=== PATIENT | male | born 1980 | race Caucasian/White ===

== ENCOUNTER 2016-07-12 22:54 | Emergency (ER) | payer SELFPAY ==
[2016-07-12] MEDS ORDERED: NS 0.9% 1000 ML* 1,000 ML IV ONE (23:10)
[2016-07-12 23:46] LABS: Hematocrit 48 % (42-52); Hemoglobin 16.4 g/dl (14.0-18.0); Mean Corpuscular HGB Conc 34 g/dl (31-36); Mean Corpuscular Hemoglobin 30 pg (27-31); Mean Corpuscular Volume 89 fL (80-94); Mean Platelet Volume 9 um3 (7.4-10.4); Red Blood Count 5.42 10^6/ul (4.0-5.4); Red Cell Distribution Width 13 % (10.5-15); White Blood Count 10.5 10^3/ul (3.5-10.8)
--- NOTE | 2016-07-12 23:49 | ED ---
Bharath Lugo Billy, scribed for Sergio Harris MD on 07/12/16 at 2330 . Abdominal Pain/Male - HPI Summary HPI Summary: Patient is a 35 year-old male coming to the ED with complaint of constant diffuse abdominal pain starting 1 week ago. Severity 5/10. He reports nausea and decreased appetite. Normal BM's. He has no other complaints at this time. - History of Current Complaint Chief Complaint: EDAbdPain Stated Complaint: ABD PAIN Time Seen by Provider: 07/12/16 23:06 Hx Obtained From: Patient Onset/Duration: Gradual Onset, Lasting Days, Still Present Timing: Constant Severity Initially: Moderate Severity Currently: Moderate Pain Intensity: 5 Pain Scale Used: 0-10 Numeric Location: Diffuse Radiates: No Aggravating Factor(s): Nothing Alleviating Factor(s): Nothing Associated Signs And Symptoms: Positive: Decreased Appetite, Nausea. Negative: Diarrhea - Allergies/Home Medications Allergies/Adverse Reactions: Allergies Allergy/AdvReac Type Severity Reaction Status Date / Time Amoxicillin Allergy Intermediate Unknown Verified 07/12/16 23:13 Reaction Details Penicillins Allergy Intermediate Rash Verified 07/12/16 23:13 Home Medications: Home Medications Cyclobenzaprine TAB* [Flexeril TAB*] 10 mg PO TID 07/12/16 [History Confirmed ] PMH/Surg Hx/FS Hx/Imm Hx Respiratory History: Reports: Hx Asthma - Surgical History Surgery Procedure, Year, and Place: knee Infectious Disease History: No Infectious Disease History: Denies: Hx Clostridium Difficile, Hx Hepatitis, Hx Human Immunodeficiency Virus (HIV), Hx of Known/Suspected MRSA, Hx Shingles, Hx Tuberculosis, Traveled Outside the [place] in Last 30 Days - Family History Known Family History: Negative: Cardiac Disease, Hypertension, Diabetes - Social History Alcohol Use: None Substance Use Type: Reports: None Hx Tobacco Use: Yes Smoking Status (MU): Heavy Every Day Tobacco Smoker Amount Used/How Often: 1/4 ppd Review of Systems Positive: Abdominal Pain, Nausea, Other - decreased appetite All Other Systems Reviewed And Are Negative: Yes Physical Exam Triage Information Reviewed: Yes Vital Signs On Initial Exam: Initial Vitals Temp Pulse Resp BP Pulse Ox 99.4 F 96 14 163/85 99 07/12/16 23:06 07/12/16 23:06 07/12/16 23:06 07/12/16 23:06 07/12/16 23:06 Vital Signs Reviewed: Yes Appearance: Positive: Well-Appearing, No Pain Distress Skin: Positive: Warm Head/Face: Positive: Normal Head/Face Inspection Eyes: Positive: TED ENT: Positive: Hearing grossly normal Neck: Positive: Supple Respiratory/Lung Sounds: Positive: Clear to Auscultation, Breath Sounds Present Cardiovascular: Positive: Normal Abdomen Description: Positive: Nontender, No Organomegaly, Soft. Negative: CVA Tenderness (R), CVA Tenderness (L) Bowel Sounds: Positive: Present Musculoskeletal: Positive: Strength/ROM Intact Neurological: Positive: Sensory/Motor Intact, Alert, Oriented to Person Place, Time Psychiatric: Positive: Affect/Mood Appropriate - [place] Coma Scale Coma Scale Total: 15 Diagnostics - Vital Signs Vital Signs Temp Pulse Resp BP Pulse Ox 07/12/16 23:16 99.4 F 92 14 163/85 98 07/12/16 23:06 99.4 F 96 14 163/85 99 - Laboratory Result Diagrams: 07/12/16 23:25 07/12/16 23:25 Lab Statement: Any lab studies that have been ordered have been reviewed, and results considered in the medical decision making process. Re-Evaluation - Re-Evaluation First Eval Change: Improved Abdominal Pain Fem Course/Dx - Diagnoses Provider Diagnoses: Abdominal pain Discharge - Discharge Plan Condition: Stable Disposition: HOME Patient Education Materials: Abdominal Pain (ED), Diet for Ulcers and Gastritis (ED) Referrals: [facility] [place] [facility] [Outside] Bradley Lou MD [Medical Doctor] - The documentation as recorded by the Bharath brownlee Billy accurately reflects the service I personally performed and the decisions made by pa, Sergio Harris MD.
[2016-07-12 23:58] LABS: Albumin 4.2 g/dL (3.2-5.2); BUN/Creatinine Ratio 7.1 (8-20); C Reactive Protein 1.21 mg/L (< 5.00); EGFR Non-African American 87.1 (>60); Globulin 3.4 g/dL (2-4); Magnesium 1.9 mg/dL (1.9-2.7); Potassium 3.7 mmol/L (3.5-5.0); Total Bilirubin 0.6 mg/dL (0.2-1.0); Total Protein 7.6 g/dL (6.4-8.9)
[2016-07-13 01:24] LABS: Urine Bilirubin Negative (Negative); Urine Glucose Negative (Negative); Urine Nitrite Negative (Negative)
[2016-07-13 01:45] VITALS: BP 139/84
== END 2016-07-13 01:44 | disposition home or self-care (01) ==
LOC: ED 22:54
DX: R10.9 Unspecified abdominal pain (principal); R11.0 Nausea; F17.200 Nicotine dependence, unspecified, uncomplicated
CPT/HCPCS: 36415; 80053; 81003; 83605; 83690; 83735; 85025; 86140; 96360; 99283

== ENCOUNTER 2016-09-15 14:18 | Emergency (ER) | payer SELFPAY ==
[2016-09-15] MEDS ORDERED: Ondansetron INJ* 2 MG/ML VIAL IV ONE (14:37)
[2016-09-15] MEDS ORDERED: HYDROmorphone INJ* 1 MG/ML CARPUJECT SYRINGE IV ONE (14:37)
[2016-09-15] MEDS ORDERED: NS 0.9% 1000 ML* 1,000 ML IV ONE (14:37)
[2016-09-15 15:27] LABS: Add Diff/Slide Review? Slide Review Added; Comments Flag Yes; Hematocrit 56 % (42-52); Hemoglobin 18.8 g/dl (14.0-18.0); Mean Corpuscular HGB Conc 33 g/dl (31-36); Mean Corpuscular Hemoglobin 30 pg (27-31); Mean Corpuscular Volume 90 fL (80-94); Mean Platelet Volume 10 um3 (7.4-10.4); Red Blood Count 6.29 10^6/ul (4.0-5.4); Red Cell Distribution Width 13 % (10.5-15); White Blood Count 19.9 10^3/ul (3.5-10.8)
[2016-09-15 15:46] LABS: Albumin 4.7 g/dL (3.2-5.2); BUN/Creatinine Ratio 8.9 (8-20); C Reactive Protein 4.48 mg/L (< 5.00); Calcium 9.6 mg/dL (8.6-10.3); EGFR African American 124.2 (>60); EGFR Non-African American 96.6 (>60); Globulin 3.7 g/dL (2-4); Potassium 4.1 mmol/L (3.5-5.0); Total Bilirubin 0.6 mg/dL (0.2-1.0); Total Protein 8.4 g/dL (6.4-8.9)
--- NOTE | 2016-09-15 15:57 | RAD ---
INDICATION: Right upper quadrant pain. COMPARISON: Comparison is made with a prior CT of the abdomen and pelvis from October 29, 2010. TECHNIQUE: Multiple real-time images of the right upper quadrant were obtained. FINDINGS: The gallbladder appear normal. No gallbladder wall thickening or pericholecystic fluid is present. No intra or extrahepatic ductal distention is present. The common bile duct measured 0.4 cm in diameter. The liver is normal in size without significant focal abnormality. The pancreas is partially obscured by overlying bowel gas. The right kidney is normal in size without evidence for hydronephrosis. IMPRESSION: NEGATIVE EXAM.
[2016-09-15] MEDS ORDERED: Pantoprazole IV* 40 MG IV ONE (16:04)
[2016-09-15] MEDS ORDERED: Sucralfate TAB* 1 GM PO ONE (16:04)
[2016-09-15] MEDS ORDERED: Iohexol 300* (CONTRAST) 10 ML SDV IV ONE (16:24)
[2016-09-15 17:00] VITALS: BP 153/79
--- NOTE | 2016-09-15 17:57 | RAD ---
INDICATION: Upper abdominal pain. COMPARISON: Comparison is made with a prior CT of the abdomen and pelvis from October 29, 2010. TECHNIQUE: A CT scan of the abdomen and pelvis was performed with intravenous and oral contrast following intravenous injection of 127 ml of Omnipaque 300 nonionic contrast. Contiguous axial sections were obtained from the lung bases through the symphysis pubis. Images were reconstructed in the coronal and sagittal planes. FINDINGS: There is mild dependent bilateral lower lobe subsegmental atelectasis. No pleural effusion is present. There is a coarse calcification in the posterior segment of the right hepatic lobe. The liver is decreased in attenuation consistent with fatty infiltration. No significant focal abnormality is seen. The spleen is normal in size without focal abnormality. No calcified gallstones are seen. The pancreas appears to be within normal limits. The kidneys and adrenal glands are normal in size. No hydronephrosis is seen. No significant focal renal abnormality is seen. The aorta is normal in caliber and demonstrates homogeneous contrast opacification. No significant enlarged retroperitoneal lymph nodes are seen. The stomach is moderately distended. There is [id number] distention of the small bowel with mild diffuse small bowel wall thickening. The distal small bowel is less distended than the proximal and mid small bowel suggesting the possibility of a partial obstruction alternatively the findings may be secondary to an enteritis. The colon is nondistended. There is fluid present within the colon. The appendix is within normal limits. There is mild descending and sigmoid diverticulosis without evidence for diverticulitis. There are small bilateral inguinal hernias containing fat. No free intraperitoneal air is seen. There is a small amount of free intraperitoneal fluid present within the abdomen and pelvis. No significant focal osseous abnormality is seen. IMPRESSION: 1. MILD TO MODERATE SMALL BOWEL DISTENTION AND SMALL BOWEL WALL THICKENING SUGGESTIVE OF A PARTIAL DISTAL SMALL BOWEL OBSTRUCTION OR AN ENTERITIS. 2. SMALL AMOUNT OF FREE INTRAPERITONEAL FLUID. 3. HEPATIC STEATOSIS.
[2016-09-15] MEDS ORDERED: metroNIDAZOLE TAB* 250 MG PO ONE (19:00)
[2016-09-15] MEDS ORDERED: HYDROcodone/ACETAMIN 5-325 MG* 1 TAB PO ONE (19:00)
[2016-09-15] MEDS ORDERED: Ciprofloxacin TAB* 500 MG PO ONE (19:00)
--- NOTE | 2016-09-15 20:15 | ED ---
Sridevi Lugo Anna, scribed for David Duval MD on 09/15/16 at 1436 . Abdominal Pain/Male - HPI Summary HPI Summary: Patient is a 36 y/o male coming to [facility] presenting with sudden onset of constant, diffuse abdominal pain that began at 0300 this morning. The pain has not changed since that time. It is described as a sharp pain. He took some baby gas drops, but this did not alleviate the symptoms. He felt nauseous when the nurse took his temperature, and he experienced one episode of emesis. He noticed loose stools at the end of his most recent BM today. He is currently experiencing diaphoresis. Denies changes in urination or abd surgery. He last ate yesterday, fast food at 1400 and Oreo cookies at 2200. The pain is not exacerbated by drinking water. - History of Current Complaint Chief Complaint: EDAbdPain Stated Complaint: ABD PAIN Time Seen by Provider: 09/15/16 14:25 Hx Obtained From: Patient Pain Intensity: 8 Pain Scale Used: 0-10 Numeric - Allergies/Home Medications Allergies/Adverse Reactions: Allergies Allergy/AdvReac Type Severity Reaction Status Date / Time Amoxicillin Allergy Intermediate Unknown Verified 07/12/16 23:13 Reaction Details Penicillins Allergy Intermediate Rash Verified 07/12/16 23:13 PMH/Surg Hx/FS Hx/Imm Hx Previously Healthy: Yes Cardiovascular History: Denies: Hx Myocardial Infarction Respiratory History: Reports: Hx Asthma - Surgical History Surgery Procedure, Year, and Place: knee Infectious Disease History: No Infectious Disease History: Denies: Hx Clostridium Difficile, Hx Hepatitis, Hx Human Immunodeficiency Virus (HIV), Hx of Known/Suspected MRSA, Hx Shingles, Hx Tuberculosis, Traveled Outside the in Last 30 Days - Family History Known Family History: Negative: Cardiac Disease, Hypertension, Diabetes - Social History Lives: With Family Alcohol Use: None Substance Use Type: Reports: None Hx Tobacco Use: Yes Smoking Status (MU): Heavy Every Day Tobacco Smoker Amount Used/How Often: 1/4 ppd Review of Systems Positive: Skin Diaphoresis Positive: Abdominal Pain, Vomiting, Diarrhea, Nausea Negative: dysuria, frequency, urgency All Other Systems Reviewed And Are Negative: Yes Physical Exam Triage Information Reviewed: Yes Vital Signs On Initial Exam: Initial Vitals Temp Pulse Resp BP Pulse Ox 97.4 F 103 18 137/85 98 09/15/16 14:22 09/15/16 14:22 09/15/16 14:22 09/15/16 14:22 09/15/16 14:22 Vital Signs Reviewed: Yes Appearance: Positive: Well-Appearing, No Pain Distress Skin: Positive: Warm, Pale. Negative: Dry - Skin is diaphoretic Head/Face: Positive: Normal Head/Face Inspection Eyes: Positive: Normal ENT: Positive: Normal ENT inspection Neck: Positive: Supple, Nontender Respiratory/Lung Sounds: Positive: Clear to Auscultation, Breath Sounds Present Cardiovascular: Positive: RRR Abdomen Description: Positive: Soft, Other: - Mild epigastric and RUQ tenderness Bowel Sounds: Positive: Hypoactive Musculoskeletal: Positive: Normal Neurological: Positive: Normal Psychiatric: Positive: Affect/Mood Appropriate Diagnostics - Vital Signs Vital Signs Temp Pulse Resp BP Pulse Ox 09/15/16 14:22 97.4 F 103 18 137/85 98 - Laboratory Lab Results: Lab Results 09/15/16 09/15/16 09/15/16 Range/Units 15:15 15:15 15:15 WBC 19.9 H (3.5-10.8) 10^3/ul RBC 6.29 H (4.0-5.4) 10^6/ul Hgb 18.8 H (14.0-18.0) g/dl Hct 56 H (42-52) % MCV 90 (80-94) fL MCH 30 (27-31) pg MCHC 33 (31-36) g/dl RDW 13 (10.5-15) % Plt Count 215 (150-450) 10^3/ul MPV 10 (7.4-10.4) um3 Neut % (Auto) 86.0 H (38-83) % Lymph % (Auto) 7.7 L (25-47) % [place] % (Auto) 5.3 (1-9) % Eos % (Auto) 0.3 (0-6) % Baso % (Auto) 0.7 (0-2) % Absolute Neuts (auto) 17.1 H (1.5-7.7) 10^3/ul Absolute Lymphs (auto) 1.5 (1.0-4.8) 10^3/ul Absolute Monos (auto) 1.1 H (0-0.8) 10^3/ul Absolute Eos (auto) 0.1 (0-0.6) 10^3/ul Absolute Basos (auto) 0.1 (0-0.2) 10^3/ul Absolute Nucleated RBC 0.04 10^3/ul Nucleated RBC % 0.2 Sodium 132 L (133-145) mmol/L Potassium 4.1 (3.5-5.0) mmol/L Chloride 103 (101-111) mmol/L Carbon Dioxide 20 L (22-32) mmol/L Anion Gap 9 (2-11) mmol/L BUN 8 (6-24) mg/dL Creatinine 0.90 (0.67-1.17) mg/dL Est GFR ( Amer) 124.2 (>60) Est GFR (Non-Af Amer) 96.6 (>60) BUN/Creatinine Ratio 8.9 (8-20) Glucose 145 H (70-100) mg/dL Lactic Acid 1.4 (0.5-2.0) mmol/L Calcium 9.6 (8.6-10.3) mg/dL Total Bilirubin 0.60 (0.2-1.0) mg/dL AST 25 (13-39) U/L ALT 51 (7-52) U/L Alkaline Phosphatase 76 (34-104) U/L Troponin I 0.00 (<0.04) ng/mL C-Reactive Protein 4.48 (< 5.00) mg/L Total Protein 8.4 (6.4-8.9) g/dL Albumin 4.7 (3.2-5.2) g/dL Globulin 3.7 (2-4) g/dL Albumin/Globulin Ratio 1.3 (1-3) Lipase 17 (11.0-82.0) U/L Result Diagrams: 09/15/16 15:15 09/15/16 15:15 Lab Statement: Any lab studies that have been ordered have been reviewed, and results considered in the medical decision making process. - CT CT abd/pel CT Interpretation: Positive (See Comments) CT Interpretation Completed By: Radiologist - IMPRESSION: 1. MILD TO MODERATE SMALL BOWEL DISTENTION AND SMALL BOWEL WALL THICKENING SUGGESTIVE OF A PARTIAL DISTAL SMALL BOWEL OBSTRUCTION OR AN ENTERITIS. 2. SMALL AMOUNT OF FREE INTRAPERITONEAL FLUID. 3. HEPATIC STEATOSIS. - Ultrasound No standard instances Ultrasound Interpretation: No Acute Changes Ultrasound Interpretation Completed By: Radiologist - IMPRESSION: NEGATIVE EXAM. Re-Evaluation - Re-Evaluation First Eval Re-Evaluation Time: 16:02 Change: Improved Comment: Discussed results of US and plan of care with patient and family. Patient and family agree with plan. Second Eval Re-Evaluation Time: 18:06 Change: Improved Comment: The patient reports that he feels a little better. Discussed results of CT and plan of care. Patient is agreeable with plan. Abdominal Pain Fem Course/Dx - Course Course Of Treatment: Mr. Le presented with severe epigastric/diffuse upper abdominal pain that started during the night. He had a little N/V/D but those symptoms weren't prominent. His WBC's were quite high, a CT showed enteritis and he got a lot of relief with pain medicine. I am going to cover him with antibiotis although this may be all viral. - Diagnoses Provider Diagnoses: Enteritis - Provider Notifications Discussed Care Of Patient With: Dr. Harrell (surgeon) at 1803. The patient is not surgical at this time. Discharge - Discharge Plan Condition: Stable Disposition: HOME Prescriptions: Ciprofloxacin TAB* [Cipro Tab*] 500 mg PO BID #20 tab HYDROcodone/ACETAMIN 5-325 MG* [[place] 5-325 TAB*] 1 tab PO Q6H PRN #20 tab MDD 4 PRN Reason: Pain Metronidazole [Flagyl 500 MG TAB] 500 mg PO TID #30 tab Patient Education Materials: Ciprofloxacin (By mouth), Hydrocodone/ Acetaminophen (By mouth), Metronidazole (By mouth), Enteritis (ED) Referrals: [facility] [place] [facility] [Outside] Additional Instructions: Follow up with primary care physician within 48 hours. Return to the emergency department for changing or worsening symptoms. The documentation as recorded by the Sridevi brownlee Anna accurately reflects the service I personally performed and the decisions made by me, David Duval MD.
== END 2016-09-15 18:56 | disposition home or self-care (01) ==
LOC: ED 14:18
DX: K52.9 Noninfective gastroenteritis and colitis, unspecified (principal); R10.9 Unspecified abdominal pain; R11.2 Nausea with vomiting, unspecified; R19.7 Diarrhea, unspecified; F17.210 Nicotine dependence, cigarettes, uncomplicated
CPT/HCPCS: 36415; 74177; 76705; 80053; 83605; 83690; 84484; 85025; 86140; 96374; 96375; 99283; A9270-GY; J1170; J2405; Q9967

== ENCOUNTER 2017-02-21 15:03 | Emergency (ER) | payer OTHER ==
[2017-02-21] MEDS ORDERED: Sucralfate TAB* 1 GM PO ONE (16:49)
[2017-02-21] MEDS ORDERED: Pantoprazole IV* 40 MG IV ONE (16:49)
[2017-02-21] MEDS ORDERED: NS 0.9% 1000 ML* 1,000 ML IV ONE (16:49)
[2017-02-21 17:16] LABS: Hematocrit 58 % (42-52); Hemoglobin 19.5 g/dl (14.0-18.0); Mean Corpuscular HGB Conc 34 g/dl (31-36); Mean Corpuscular Hemoglobin 31 pg (27-31); Mean Corpuscular Volume 90 fL (80-94); Mean Platelet Volume 9 um3 (7.4-10.4); Red Blood Count 6.39 10^6/ul (4.0-5.4); Red Cell Distribution Width 13 % (10.5-15); White Blood Count 17.9 10^3/ul (3.5-10.8)
[2017-02-21 17:17] LABS: Add Diff/Slide Review? Slide Review Added; Comments Flag Yes
[2017-02-21 17:32] LABS: ALT 44 U/L (7-52); AST 21 U/L (13-39); Albumin 4.6 g/dL (3.2-5.2); Alkaline Phosphatase 63 U/L (34-104); Anion Gap 7 mmol/L (2-11); BUN/Creatinine Ratio 12.2 (8-20); Blood Urea Nitrogen 10 mg/dL (6-24); C Reactive Protein < 1.00 mg/L (< 5.00); CO2 Carbon Dioxide 21 mmol/L (22-32); Calcium 9.5 mg/dL (8.6-10.3); Chloride 106 mmol/L (101-111); EGFR African American 138.3 (>60); EGFR Non-African American 107.6 (>60); Globulin 3.7 g/dL (2-4); Glucose 110 mg/dL (70-100); Lipase 17 U/L (11.0-82.0); Potassium 4.1 mmol/L (3.5-5.0); Sodium 134 mmol/L (133-145); Total Protein 8.3 g/dL (6.4-8.9)
[2017-02-21 17:38] LABS: Spherocytes 2+
[2017-02-21] MEDS ORDERED: HYDROmorphone* 1 MG/ML 1 ML SYR IV ONE (18:40)
[2017-02-21] MEDS: Ondansetron INJ* 2 MG/ML VIAL IV ONE ×2 (18:54→19:21)
[2017-02-21] MEDS ORDERED: Ketorolac INJ* 30 MG/ML 1 ML VIAL IV ONE (19:10)
[2017-02-21 19:54] LABS: Urine Bacteria Absent (Absent); Urine Bilirubin Negative (Negative); Urine Glucose Negative (Negative); Urine Nitrite Negative (Negative)
[2017-02-21 20:27] VITALS: BP 136/78
--- NOTE | 2017-02-21 21:36 | ED ---
Cary Lugo Alfonso, scribed for David Duval MD on 02/21/17 at 1649 . Abdominal Pain/Male - HPI Summary HPI Summary: This patient is a 36 year old M presenting to [facility] accompanied by female with a chief complaint of abdominal pain since 0700 this morning. He has had this pain once before. The CC is described as stabbing pain. The patient rates the pain 7/10 in severity. Symptoms aggravated and alleviated by nothing. Patient reports diarrhea, and nausea. Patient denies change in diet, and recent ETOH use. - History of Current Complaint Chief Complaint: EDAbdPain Stated Complaint: ABD PAIN Time Seen by Provider: 02/21/17 16:27 Hx Obtained From: Patient Onset/Duration: Sudden Onset, Lasting Hours - 0700 this morning, Still Present Timing: Constant Severity Initially: Moderate Severity Currently: Moderate Pain Intensity: 7 Pain Scale Used: 0-10 Numeric Character: Sharp Aggravating Factor(s): Nothing Alleviating Factor(s): Nothing Associated Signs And Symptoms: Positive: Other - Patient reports diarrhea, and nausea. Patient denies change in diet, and recent ETOH use. - Allergies/Home Medications Allergies/Adverse Reactions: Allergies Allergy/AdvReac Type Severity Reaction Status Date / Time Amoxicillin Allergy Intermediate Nausea And Verified 02/21/17 16:50 Vomiting Penicillins Allergy Intermediate Rash Verified 07/12/16 23:13 PMH/Surg Hx/FS Hx/Imm Hx Endocrine/Hematology History: Denies: Hx Diabetes Cardiovascular History: Denies: Hx Hypertension, Hx Myocardial Infarction Respiratory History: Reports: Hx Asthma History: Denies: Hx Renal Disease - Surgical History Surgery Procedure, Year, and Place: knee Infectious Disease History: No Infectious Disease History: Denies: Hx Clostridium Difficile, Hx Hepatitis, Hx Human Immunodeficiency Virus (HIV), Hx of Known/Suspected MRSA, Hx Shingles, Hx Tuberculosis, Traveled Outside the [place] in Last 30 Days - Family History Known Family History: Negative: Cardiac Disease, Hypertension, Diabetes - Social History Alcohol Use: None Substance Use Type: Reports: None Hx Tobacco Use: Yes Smoking Status (MU): Heavy Every Day Tobacco Smoker Amount Used/How Often: 1/4 ppd Review of Systems Negative: Fever Positive: Abdominal Pain, Diarrhea, Other - Negative change in diet.. Negative : Nausea Neurological: Other - Negative recent ETOH use All Other Systems Reviewed And Are Negative: Yes Physical Exam Triage Information Reviewed: Yes Vital Signs On Initial Exam: Initial Vitals Temp Pulse Resp BP Pulse Ox 99 F 96 20 160/87 98 02/21/17 15:05 02/21/17 15:05 02/21/17 15:05 02/21/17 15:05 02/21/17 15:05 Vital Signs Reviewed: Yes Appearance: Positive: Well-Appearing, No Pain Distress Skin: Positive: Warm, Skin Color Reflects Adequate Perfusion, Dry Head/Face: Positive: Normal Head/Face Inspection Eyes: Positive: Normal ENT: Positive: Normal ENT inspection Neck: Positive: Supple, Nontender Respiratory/Lung Sounds: Positive: Clear to Auscultation, Breath Sounds Present Cardiovascular: Positive: RRR Abdomen Description: Positive: Soft, Other: - Epigastric tenderness. Bowel Sounds: Positive: Present Musculoskeletal: Positive: Normal Neurological: Positive: Normal, Sensory/Motor Intact, Alert, Oriented to Person Place, Time, CN Intact II-III Psychiatric: Positive: Affect/Mood Appropriate Diagnostics - Vital Signs Vital Signs Temp Pulse Resp BP Pulse Ox 02/21/17 16:46 99.0 F 86 16 143/94 97 02/21/17 16:32 95 97 02/21/17 16:30 143/94 02/21/17 15:05 99 F 96 20 160/87 98 - Laboratory Lab Results: Lab Results 02/21/17 02/21/17 02/21/17 Range/Units 17:08 17:08 17:08 WBC 17.9 H (3.5-10.8) 10^3/ul RBC 6.39 H (4.0-5.4) 10^6/ul Hgb 19.5 H (14.0-18.0) g/dl Hct 58 H (42-52) % MCV 90 (80-94) fL MCH 31 (27-31) pg MCHC 34 (31-36) g/dl RDW 13 (10.5-15) % Plt Count 220 (150-450) 10^3/ul MPV 9 (7.4-10.4) um3 Neut % (Auto) 82.3 (38-83) % Lymph % (Auto) 10.6 L (25-47) % [place] % (Auto) 5.9 (1-9) % Eos % (Auto) 0.6 (0-6) % Baso % (Auto) 0.6 (0-2) % Absolute Neuts (auto) 14.7 H (1.5-7.7) 10^3/ul Absolute Lymphs (auto) 1.9 (1.0-4.8) 10^3/ul Absolute Monos (auto) 1.0 H (0-0.8) 10^3/ul Absolute Eos (auto) 0.1 (0-0.6) 10^3/ul Absolute Basos (auto) 0.1 (0-0.2) 10^3/ul Absolute Nucleated RBC 0 10^3/ul Nucleated RBC % 0 Normal RBC Morphology Not Reportable Spherocytes 2+ Sodium 134 (133-145) mmol/L Potassium 4.1 (3.5-5.0) mmol/L Chloride 106 (101-111) mmol/L Carbon Dioxide 21 L (22-32) mmol/L Anion Gap 7 (2-11) mmol/L BUN 10 (6-24) mg/dL Creatinine 0.82 (0.67-1.17) mg/dL Est GFR ( Amer) 138.3 (>60) Est GFR (Non-Af Amer) 107.6 (>60) BUN/Creatinine Ratio 12.2 (8-20) Glucose 110 H (70-100) mg/dL Lactic Acid 0.9 (0.5-2.0) mmol/L Calcium 9.5 (8.6-10.3) mg/dL Total Bilirubin 0.50 (0.2-1.0) mg/dL AST 21 (13-39) U/L ALT 44 (7-52) U/L Alkaline Phosphatase 63 (34-104) U/L C-Reactive Protein < 1.00 (< 5.00) mg/L Total Protein 8.3 (6.4-8.9) g/dL Albumin 4.6 (3.2-5.2) g/dL Globulin 3.7 (2-4) g/dL Albumin/Globulin Ratio 1.2 (1-3) Lipase 17 (11.0-82.0) U/L Urine Color Urine Appearance Urine pH (5-9) Ur Specific [place] (1.010-1.030) Urine Protein (Negative) Urine Ketones (Negative) Urine Blood (Negative) Urine Nitrate (Negative) Urine Bilirubin (Negative) Urine Urobilinogen (Negative) Ur Leukocyte Esterase (Negative) Urine WBC (Auto) (Absent) Urine RBC (Auto) (Absent) Ur Squamous Epith Cells (Absent) Urine Bacteria (Absent) Urine Glucose (Negative) 02/21/17 Range/Units 19:27 WBC (3.5-10.8) 10^3/ul RBC (4.0-5.4) 10^6/ul Hgb (14.0-18.0) g/dl Hct (42-52) % MCV (80-94) fL MCH (27-31) pg MCHC (31-36) g/dl RDW (10.5-15) % Plt Count (150-450) 10^3/ul MPV (7.4-10.4) um3 Neut % (Auto) (38-83) % Lymph % (Auto) (25-47) % [place] % (Auto) (1-9) % Eos % (Auto) (0-6) % Baso % (Auto) (0-2) % Absolute Neuts (auto) (1.5-7.7) 10^3/ul Absolute Lymphs (auto) (1.0-4.8) 10^3/ul Absolute Monos (auto) (0-0.8) 10^3/ul Absolute Eos (auto) (0-0.6) 10^3/ul Absolute Basos (auto) (0-0.2) 10^3/ul Absolute Nucleated RBC 10^3/ul Nucleated RBC % Normal RBC Morphology Spherocytes Sodium (133-145) mmol/L Potassium (3.5-5.0) mmol/L Chloride (101-111) mmol/L Carbon Dioxide (22-32) mmol/L Anion Gap (2-11) mmol/L BUN (6-24) mg/dL Creatinine (0.67-1.17) mg/dL Est GFR ( Amer) (>60) Est GFR (Non-Af Amer) (>60) BUN/Creatinine Ratio (8-20) Glucose (70-100) mg/dL Lactic Acid (0.5-2.0) mmol/L Calcium (8.6-10.3) mg/dL Total Bilirubin (0.2-1.0) mg/dL AST (13-39) U/L ALT (7-52) U/L Alkaline Phosphatase (34-104) U/L C-Reactive Protein (< 5.00) mg/L Total Protein (6.4-8.9) g/dL Albumin (3.2-5.2) g/dL Globulin (2-4) g/dL Albumin/Globulin Ratio (1-3) Lipase (11.0-82.0) U/L Urine Color Yellow Urine Appearance Clear Urine pH 5.0 (5-9) Ur Specific [place] 1.021 (1.010-1.030) Urine Protein 1+(30 mg/dl) H (Negative) Urine Ketones 1+ H (Negative) Urine Blood Negative (Negative) Urine Nitrate Negative (Negative) Urine Bilirubin Negative (Negative) Urine Urobilinogen Negative (Negative) Ur Leukocyte Esterase Negative (Negative) Urine WBC (Auto) Absent (Absent) Urine RBC (Auto) Trace(0-2/hpf) (Absent) Ur Squamous Epith Cells Present H (Absent) Urine Bacteria Absent (Absent) Urine Glucose Negative (Negative) Result Diagrams: 02/21/17 17:08 02/21/17 17:08 Lab Statement: Any lab studies that have been ordered have been reviewed, and results considered in the medical decision making process. Abdominal Pain Fem Course/Dx - Course Course Of Treatment: Mr. Le presented with acute epigastric pain which improved slowly and incompletely with protonix, sucralfate and ketorolac. His W/ U revealed a leukocytosis if 17. He had this happen before and had a CT which was negative and I am hesitant to repeat it. He is largely improved and I will give him some sucralfate to use for a few days and F/U. - Diagnoses Provider Diagnoses: Epigastric abdominal pain Discharge - Discharge Plan Condition: Stable Disposition: HOME Prescriptions: Sucralfate TAB* [Carafate*] 1 gm PO QID #40 tab Patient Education Materials: Epigastric Pain (ED) Forms: *Work Release Referrals: [facility] [place] [facility] [Outside] - 3 Days The documentation as recorded by the Cary brownlee Alfonso accurately reflects the service I personally performed and the decisions made by me, David Duval MD.
== END 2017-02-21 20:35 | disposition home or self-care (01) ==
LOC: ED 15:03
DX: R10.13 Epigastric pain (principal); R11.0 Nausea; R19.7 Diarrhea, unspecified; J45.909 Unspecified asthma, uncomplicated; Z88.0 Allergy status to penicillin; F17.210 Nicotine dependence, cigarettes, uncomplicated
CPT/HCPCS: 36415; 80053; 81003; 81015; 83605; 83690; 85025; 86140; 96361; 96374; 96375; 99283; A9270-GY; J1885; J2405

== ENCOUNTER 2018-01-31 13:38 | Emergency (ER) | payer MEDICAID, OTHER ==
[2018-01-31 13:52] VITALS: BP 147/97
--- NOTE | 2018-01-31 14:04 | UC ---
Knee Pain HPI - HPI Summary HPI Summary: right knee (anterior distal---over past surgical scar) hit by a stone while weed whacking last week end. - History of Current Complaint Chief Complaint: UCLowerExtremity Stated Complaint: WOUND ON KNEE Time Seen by Provider: 01/31/18 13:50 Hx Obtained From: Patient Onset/Duration: Sudden Onset Location Of Injury: right knee Pain Intensity: 5 Pain Scale Used: 0-10 Numeric Character: Aching Aggravating Factor(s): Nothing Alleviating Factor(s): Other - "black drawing tato" Associated Signs And Symptoms: Positive: Redness Able to Bear Weight: Yes - Allergies/Home Medications Allergies/Adverse Reactions: Allergies Allergy/AdvReac Type Severity Reaction Status Date / Time Penicillins Allergy Rash Verified 01/31/18 13:53 PMH/Surg Hx/FS Hx/Imm Hx Previously Healthy: No - Surgical History Surgical History: Yes Surgery Procedure, Year, and Place: Right knee acl repair - Family History Known Family History: Positive: Unknown Negative: Cardiac Disease, Hypertension, Diabetes - Social History Occupation: Employed Full-time Lives: With Family Alcohol Use: None Substance Use Type: None Smoking Status (MU): Heavy Every Day Tobacco Smoker Amount Used/How Often: 1/ ppd Review of Systems Constitutional: Negative Skin: Other - pw right knee with scabbing and 3 cm diamerter erythema Eyes: Negative ENT: Negative Respiratory: Negative Cardiovascular: Negative Gastrointestinal: Negative Genitourinary: Negative Motor: Negative Neurovascular: Negative Musculoskeletal: Negative Neurological: Negative Psychological: Negative Is Patient Immunocompromised?: No All Other Systems Reviewed And Are Negative: Yes Physical Exam Triage Information Reviewed: Yes Appearance: Well-Appearing, No Pain Distress, Well-Nourished Vital Signs: Initial Vital Signs Temp 99.3 F 01/31/18 13:48 Pulse 92 01/31/18 13:48 Resp 16 01/31/18 13:48 BP 147/97 01/31/18 13:48 Pulse Ox 100 01/31/18 13:48 Vital Signs Reviewed: Yes Eye Exam: Normal Eyes: Positive: Conjunctiva Clear ENT Exam: Normal ENT: Positive: Normal ENT inspection, Hearing grossly normal. Negative: Trismus , Muffled voice, Hoarse voice Dental Exam: Normal Neck exam: Normal Neck: Positive: Supple, Nontender Respiratory Exam: Normal Respiratory: Positive: Chest non-tender, No respiratory distress, No accessory muscle use Cardiovascular Exam: Normal Cardiovascular: Positive: RRR, Pulses Normal, Brisk Capillary Refill Musculoskeletal Exam: Normal Musculoskeletal: Positive: Strength Intact, ROM Intact, No Edema Neurological Exam: Normal Neurological: Positive: Alert, Muscle Tone Normal Psychological Exam: Normal Skin Exam: Other Skin: Positive: Other - scab right distal anterior medial aspect of knee with 3cm of erythema--patient reported drained but no purulence collection of drainage noted on exam Diagnostics - Radiology No standard instances Xray Interpretation: No Acute Changes Radiology Interpretation Completed By: ED Physician, Radiologist - Patient Name : MYRON MOELLER Medical Record#: [id number] Ordering Physician: Emeli Saha NP Acct.#: [id number] : 1980 Age: 37 Sex: M Location: [facility] Exam Date: 01/31/18 1349 ADM Status: REG ER Order Information: KNEE RIGHT 4+ VWS Accession Number: [id number] CPT: 77663 HISTORY: infection,swelling COMPARISONS: December 01, 2004 VIEWS: 5, Frontal, lateral, axial, and oblique views of the right knee FINDINGS: BONE DENSITY: Normal. BONES: There is postsurgical change to the distal femur and proximal tibia. JOINTS: There is mild to moderate tricompartmental osteoarthritis. There is no suprapatellar joint effusion or lipohemarthrosis. ALIGNMENT: There is no dislocation. SOFT TISSUES: Unremarkable. OTHER FINDINGS: None. IMPRESSION: OSTEOARTHRITIS. NO ACUTE OSSEOUS INJURY. IF SYMPTOMS PERSIST, RECOMMEND REPEAT IMAGING. <Electronically signed by Glenn Torres MD in OV> 01/31/181422 Dictated By: Glenn Torres MD Dictated Date/Time: 01/31/181422 Transcribed Date/Time: 01/31/18 142 Copy to: CC:Emeli Saha NP; Susan Moeller MD; No Primary Care Phys,NOPCP Imaging - [facility] Imaging - [facility] [address] [address] ph [phone]) ph [phone] ph ) This report is only to be considered final once signed by the Provider(s) as displayed in the "<Electronically Signed by >" field (s). Absence of a signature indicates the report is in a draft status and still needs to be finalized. In the event this document was created by someone other than the signing Provider, the individual initiating the document will be listed in the "Entered by:" or "Dictated by:" wills. 1 of 1 Knee Pain Course/Dx - Course Course Of Treatment: warm compresses, bactrim, soap and water wash bid, follow wound and BP with PCP or [facility] - Differential Dx/Diagnosis Provider Diagnoses: elevated blood pressure without hx of hypertension, wound infection right knee Discharge - Sign-Out/Discharge Documenting (check all that apply): Patient Departure - Discharge Plan Condition: Stable Disposition: HOME Prescriptions: Sulfamethox/Trimethoprim DS* [Bactrim DS 800/160 TAB*] 1 tab PO BID #20 tab Patient Education Materials: Acute Wound Care (ED), Hypertension (ED), Warm Compress or Soak (ED) Referrals: [facility] [Outside] - 1 Week (wound and bp recheck) Flash Hoff MD [Medical Doctor] - 2 Weeks - Billing Disposition and Condition Condition: STABLE Disposition: Home Attestation Statement User Type: Provider - I was available for consult. This patient was seen by the SHADE. The patient was not presented to, seen by, or examined by me. -Anayeli
--- NOTE | 2018-01-31 14:26 | RAD ---
HISTORY: infection,swelling COMPARISONS: December 01, 2004 VIEWS: 5, Frontal, lateral, axial, and oblique views of the right knee FINDINGS: BONE DENSITY: Normal. BONES: There is postsurgical change to the distal femur and proximal tibia. JOINTS: There is mild to moderate tricompartmental osteoarthritis. There is no suprapatellar joint effusion or lipohemarthrosis. ALIGNMENT: There is no dislocation. SOFT TISSUES: Unremarkable. OTHER FINDINGS: None. IMPRESSION: OSTEOARTHRITIS. NO ACUTE OSSEOUS INJURY. IF SYMPTOMS PERSIST, RECOMMEND REPEAT IMAGING.
== END 2018-01-31 14:38 | disposition home or self-care (01) ==
LOC: UCEAST 13:38
DX: S80.911A Unspecified superficial injury of right knee, initial encounter (principal); L08.9 Local infection of the skin and subcutaneous tissue, unspecified; R03.0 Elevated blood-pressure reading, without diagnosis of hypertension; F17.210 Nicotine dependence, cigarettes, uncomplicated; W22.8XXA Striking against or struck by other objects, initial encounter; Z88.0 Allergy status to penicillin; Y93.89 Activity, other specified; Y92.9 Unspecified place or not applicable
CPT/HCPCS: 99212; G0463

== ENCOUNTER 2018-08-03 18:45 | Emergency (ER) | payer MEDICAID ==
[2018-08-03] MEDS ORDERED: Ibuprofen TAB* 600 MG PO ONE (19:16)
--- NOTE | 2018-08-03 19:24 | UC ---
Dental HPI - HPI Summary HPI Summary: 37-year-old male presents with onset of right lower dental pain this morning. States pain was initially mild but tonight while eating some hot soup had sudden severe sharp pain and has noticed some mild right facial swelling since. He has history of abscess of the same tooth in the past. No dental appointment as currently scheduled. Denies fever, chills, trismus, dysphagia, or difficulty breathing. - History of Current Complaint Chief Complaint: UCDentalProblem Stated Complaint: TOOTH ACHE Time Seen by Provider: 08/03/18 19:09 Hx Obtained From: Patient Pain Intensity: 8 - Allergies/Home Medications Allergies/Adverse Reactions: Allergies Allergy/AdvReac Type Severity Reaction Status Date / Time carisoprodol [From [employer]] Allergy Severe Headache Verified 08/03/18 18:56 Penicillins Allergy Rash Verified 01/31/18 13:53 PMH/Surg Hx/FS Hx/Imm Hx Previously Healthy: Yes - Denies significant PMH - Surgical History Surgical History: Yes Surgery Procedure, Year, and Place: Right knee acl repair - Family History Known Family History: Negative: Cardiac Disease, Hypertension, Diabetes - Social History Occupation: Employed Full-time Lives: With Family Alcohol Use: None Substance Use Type: None Smoking Status (MU): Heavy Every Day Tobacco Smoker Amount Used/How Often: 1/4 ppd Review of Systems All Other Systems Reviewed And Are Negative: Yes Constitutional: Negative: Fever, Chills Eyes: Negative: Drainage, Eye Redness ENT: Positive: Dental Pain. Negative: Sore Throat, Ear Ache, Nasal Discharge, Sinus Congestion, Sinus Pain/Tenderness Respiratory: Negative: Shortness Of Breath, Cough Cardiovascular: Negative: Palpitations, Chest Pain Gastrointestinal: Negative: Abdominal Pain, Vomiting, Diarrhea, Nausea Genitourinary: Positive: Negative Musculoskeletal: Positive: Negative Neurological: Positive: Negative Is Patient Immunocompromised?: No Physical Exam - Summary Physical Exam Summary: GENERAL APPEARANCE: Well developed, well nourished, alert and cooperative, and appears to be in no acute distress. HEAD: Mild facial swelling over right maxilla. EYES: Conjunctiva clear. No drainage. Vision is grossly intact. EARS: External auditory canals and tympanic membranes clear, hearing grossly intact. NOSE: No nasal discharge. THROAT: Pharynx normal. No tonsilar inflammation, swelling, exudate, or lesions. Uvula midline. Multiple dental caries noted throughout with significant dental decay of right 2nd molar (#31) with gingival erythema. No induration, fluctuance, or drainage noted. Right 1st molar (#30) absent. NECK: Neck supple, non-tender without lymphadenopathy. CARDIAC: Normal S1 and S2. No S3, S4 or murmurs. Rhythm is regular. There is no peripheral edema, cyanosis or pallor. Extremities are warm and well perfused. Capillary refill is less than 2 seconds. LUNGS: Clear to auscultation without rales, rhonchi, wheezing or diminished breath sounds. ABDOMEN: Positive bowel sounds. Soft, nondistended, nontender. No guarding or rebound. No masses or hepatosplenomegally. MUSKULOSKELETAL: ROM intact to all extremities. No joint erythema or tenderness. Normal muscular development. Normal gait. SKIN: Skin normal color, texture and turgor with no lesions or eruptions. Triage Information Reviewed: Yes Vital Signs: Initial Vital Signs Temp 99 F 08/03/18 18:50 Pulse 77 08/03/18 18:50 Resp 17 08/03/18 18:50 BP 196/106 08/03/18 18:50 Pulse Ox 98 08/03/18 18:50 Vital Signs Reviewed: Yes Dental Complaint Course/Dx - Course Course Of Treatment: 37-year-old male presents with onset of right lower dental pain this morning. States pain was initially mild but tonight while eating some hot soup had sudden severe sharp pain and has noticed some mild right facial swelling since. He has history of abscess of the same tooth in the past. No dental appointment as currently scheduled. Denies fever, chills, trismus, dysphagia, or difficulty breathing. Afebrile. He was noted to be hypertensive otherwise vital signs were within normal parameters. Exam revealed an adult male who appears uncomfortable holding his right lower jaw. There is some mild facial swelling along the right maxilla. He has diffuse dental caries with severe dental decay of the second right lower molar with some gingival erythema. No induration, fluctuance, or drainage noted. Patient was offered an inferior alveolar nerve block for pain management but declined. He was given a dose of ibuprofen 600 mg. I'm going to treat for possible dental infection with clindamycin 300 mg 3 times a day 10 days and recommend continued use of ibuprofen 6 that her milligrams every 8 hours as needed for pain. He is to schedule an appointment with his dentist at next available. It is been recommended that she follow up with his primary care provider within 4 weeks for recheck blood pressure. Anticipatory guidance and warning symptoms were reviewed with the patient. Verbalizes understanding and agrees with plan of care. - Differential Dx/Diagnosis Differential Diagnosis/Dx: Dental Abscess, Dental Caries, Fractured Tooth, Odontogenic Pain, Peridontic Disease Provider Diagnosis: Pain, dental Discharge - Sign-Out/Discharge Documenting (check all that apply): Patient Departure All imaging exams completed and their final reports reviewed: No Studies - Discharge Plan Condition: Stable Disposition: HOME Prescriptions: Clindamycin HCl 300 mg PO Q8HR #30 capsule Ibuprofen 600 mg PO Q8HR PRN #30 tablet PRN Reason: Pain Patient Education Materials: Toothache (ED) Forms: *Work Release Referrals: No Primary Care Phys,NOPCP [Primary Care Provider] - Additional Instructions: Start clindamycin 300 mg every 8 hours for a possible dental infection. Take ibuprofen 600 mg every 8 hours as needed for pain. Rinse your mouth with a salt water solution after eating and at bedtime to remove debris. Apply ice to your face for 15-20 minutes 4 times a day to help with pain and swelling. Call and schedule an appointment with your dentist at next available appointment. Your blood pressure was elevated in the office today. It is recommended that you follow up with your primary care provider within 4 weeks to have this rechecked. Seek immediate medical attention if you develop fever greater than 100.5 F, are unable to open your mouth, have difficulty swallowing, difficulty breathing or any worsening of symptoms. - Billing Disposition and Condition Condition: STABLE Disposition: Home
[2018-08-03 19:26] VITALS: BP 150/94
== END 2018-08-03 19:38 | disposition home or self-care (01) ==
LOC: UCEAST 18:45
DX: K08.89 Other specified disorders of teeth and supporting structures (principal); K02.9 Dental caries, unspecified; Z88.0 Allergy status to penicillin; Z88.8 Allergy status to other drugs, medicaments and biological substances; F17.200 Nicotine dependence, unspecified, uncomplicated
CPT/HCPCS: 99212; A9270-GY; G0463

== ENCOUNTER 2018-09-03 15:52 | Inpatient (IN) | payer OTHER ==
--- OUTSIDE RECORDS SUMMARY | 2018-09-03 16:17 | XMS REPORT | Continuity of Care Document ---
:1980 External Reference #:[id number] Author Name Josselin Castaneda Care Team Providers Name Role Phone Eleno Quinteros M.D.,[facility] Care Team Information Hat Body Sorter Unavailable Payers Date Identification Numbers Payment Provider Subscriber Policy Number: [id number] Marcial/[employer] Ryan Le PayID: [id number] [address] [address] [place] [address] Policy Number: [id number] Medicaid Ryan Le Group Name: 1 1 [address] PayID: [id number] [place] [address] Advance Directives Description No Information Available Problems Date Description Provider Status Onset: 09/01/2018 Periapical abscess without sinus tract Marcos Ramos MD Active Family History Description No Information Available Social History Type Date Description Comments Sex Unknown Tobacco Use Start: Unknown Patient is a current trying to quit, using smoker, smokes every day patches and smoking only occasionally throughout the day. Smoking Status Reviewed: 09/01/18 Patient is a current trying to quit, using smoker, smokes every day patches and smoking only occasionally throughout the day. Allergies, Adverse Reactions, Alerts Date Description Reaction Status Severity Comments 09/01/2018 Amoxicillin Active 09/01/2018 Penicillin Active 09/25/2009 NKDA Inactive Medications Medication Date Status Form Strength Qnty SIG Indications Ordering Provider Gino Active Tablets 500mg 21tabs completed K04.7 Rupesh Quintero ---take MD every 8 hours for 7 days Ibuprofen 0 Active Tablets 800mg po bid Unknown 000 Clindamycin Active Capsules 300mg 1 by Unknown HCL 000 mouth three times a day Tramadol HCL 0 Active Tablets 50mg 1 tablet Unknown 000 by mouth every 8 hours as needed pain Cipro Hx Tablets 500mg 20tabs 1 po bid [facility] 010 - for 10 Christine, days MJody 019 Immunizations Description No Information Available Vital Signs Date Vital Result Comment 09/01/2018 11:50am Height 68 inches 5'8" Weight 197.00 lb Heart Rate 82 /min BP Systolic 158 mmHg LA BP Diastolic 100 mmHg LA BP Systolic Sitting 156 mmHg Ra BP Diastolic Sitting 98 mmHg Ra Respiratory Rate 16 /min Body Temperature 98.9 F Pain Level 7 oral/face O2 % BldC Oximetry 98 % BMI (Body Mass Index) 30.0 kg/m2 09/25/2009 3:18pm Height 68 inches 5'8" Weight 209.00 lb Heart Rate 80 /min BP Systolic Sitting 140 mmHg BP Diastolic Sitting 80 mmHg Body Temperature 98.6 F BMI (Body Mass Index) 31.8 kg/m2 Results Description No Information Available Procedures Description No Information Available Encounters Type Date Location Provider Dx Diagnosis Office Visit 08/28/2018 [facility] Behzad Noble04.7 Periapical abscess 8:59a Assoc,pc DO without sinus Hospitalists Office Visit 09/25/2009 DO Not Use It Technical Support Specialist AT [facility], 685.1 Pilonidal Cyst W/O 3:00p Jennifer Olivarez Abscess Plan of Treatment 09/01/2018 - Marcos Ramos MDK04.7 Periapical abscess without sinusNew Medication: Flagyl 500 mg - completed---take every 8 hours for 7 days
--- OUTSIDE RECORDS SUMMARY | 2018-09-03 16:17 | XMS REPORT ---
:1980 Author Organization [facility] Care Team Providers Name Role Phone Sid Thomson Unavailable Unavailable PROBLEMS Unknown Problems ALLERGIES No Information ENCOUNTERS Encounter Location Date Diagnosis [address] [address] Aug, [address] [address] Aug, [facility] [address] [place] [address] Aug, [id number] [address] Mar, [facility] [address] [place] [address] Mar, [id number] IMMUNIZATIONS No Known Immunizations SOCIAL HISTORY Never Assessed REASON FOR REFERRAL FUNCTIONAL STATUS PLAN OF CARE VITAL SIGNS Blood pressure systolic 158 mm Hg 2018-09-01 Blood pressure diastolic 95 mm Hg 2018-09-01 MEDICATIONS Unknown Medications PROCEDURES Procedure Date Ordered Result Body Site BLOOD PRESSURE, MEASURED Sep 01, 2018 LTD ORAL EVALUATION-PROBLEM FOCUS Sep 01, 2018 RESULTS No Results REASON FOR VISIT #31 Insurance Providers [facility] Health Member Patient Patient Patient Patient Patient Subscriber Subscriber Subscriber Group Insurance Plan Plan Plan Plan ID Relationship Address Phone Name Date of ID Name Date of No Type Insurance Insurance Insurance Coverage to Subscriber Address Phone Name Dates Aniket [address] [phone] Marcial self Ryan [id number] [facility] [address] [facility] Mimi Medicaid [place] Medical [place] Medical [id number] Aniket [phone] Marcial self Ryan [id number] Health [address] Health -UAA [id number] [place] [id number] [place] [employer] Karen Dept Hplex Karen [facility] [address] [address] [phone] Medicaid self [place] [id number] Wrap [facility] [address] [facility] [address]
[2018-09-03] MEDS ORDERED: Clindamycin 600 MG IVPREMIX(* 600 MG in PREMIX* 0 ML IV ONE (16:26)
[2018-09-03] MEDS ORDERED: NS 0.9% 1000 ML** 1,000 ML IV ONE ×2 (16:26→17:31)
--- NOTE | 2018-09-03 16:28 | ED ---
Throat Pain/Nasal Congestion - HPI Summary HPI Summary: This patient is a 38 year old M presenting to ED with a chief complaint of R lower jaw swelling since 1 week ago. He was admitted last week for the infection and was given abx. He went to a dentist but they will not pull the tooth until the infection is controlled. The CC is described as radiating into the R neck and has worsened since onset. The patient rates the pain 8/10 in severity. Symptoms aggravated by nothing. Symptoms alleviated by nothing. Patient reports SOB, diaphoresis, nausea, dry mouth, and difficulty swallowing. - History of Current Complaint Chief Complaint: EDDentalPain Time Seen by Provider: 09/03/18 16:19 Hx Obtained From: Patient Onset/Duration: Sudden Onset, Lasting Weeks - about 1 week ago, Still Present Severity: Severe - 8/10 - Allergies/Home Medications Allergies/Adverse Reactions: Allergies Allergy/AdvReac Type Severity Reaction Status Date / Time carisoprodol [From [employer]] Allergy Severe Headache Verified 09/03/18 16:07 Penicillins Allergy Rash Verified 09/03/18 16:07 PMH/Surg Hx/FS Hx/Imm Hx Endocrine/Hematology History: Denies: Hx Diabetes Cardiovascular History: Denies: Hx Hypertension, Hx Myocardial Infarction Respiratory History: Reports: Hx Asthma History: Denies: Hx Renal Disease Sensory History: Denies: Hx Contacts or Glasses, Hx Hearing Aid Opthamlomology History: Denies: Hx Contacts or Glasses - Surgical History Surgery Procedure, Year, and Place: Right knee acl repair Infectious Disease History: No Infectious Disease History: Denies: Hx Clostridium Difficile, Hx Hepatitis, Hx Human Immunodeficiency Virus (HIV), Hx of Known/Suspected MRSA, Hx Shingles, Hx Tuberculosis, Traveled Outside the [place] in Last 30 Days - Family History Known Family History: Negative: Cardiac Disease, Hypertension, Diabetes - Social History Alcohol Use: Occasionally Substance Use Type: Reports: None Hx Tobacco Use: Yes Smoking Status (MU): Heavy Every Day Tobacco Smoker Type: Cigarettes Amount Used/How Often: 1 ppd Review of Systems Positive: Skin Diaphoresis Positive: Other - R lower jaw swelling and pain radiating into the R side of the neck, difficulty swallowing, dry mouth Positive: Shortness Of Breath Positive: Nausea All Other Systems Reviewed And Are Negative: Yes Physical Exam - Summary Physical Exam Summary: VITAL SIGNS: Reviewed. GENERAL: Patient is a well-developed and nourished MALE who is lying comfortable in the stretcher. Patient is not in any acute respiratory distress. HEAD AND FACE: No signs of trauma. No ecchymosis, hematomas or skull depressions. No sinus tenderness. EYES: PERRLA, EOMI x 2, No injected conjunctiva, no nystagmus. EARS: Hearing grossly intact. Ear canals and tympanic membranes are within normal limits. MOUTH: Swelling R side of jaw, going into R side of neck, has multiple dental cavities in tooth #31 with infection. Has trismus but airway is patent, no swelling of tongue, no swelling in floor of the mouth. NECK: Trachea is midline, no adenopathy, no JVD, no carotid bruit, no c-spine tenderness, neck with full ROM. CHEST: Symmetric, no tenderness at palpation LUNGS: Clear to auscultation bilaterally. No wheezing or crackles. CVS: Regular rate and rhythm, S1 and S2 present, no murmurs or gallops appreciated. ABDOMEN: Soft, non-tender. No signs of distention. No rebound no guarding, and no masses palpated. Bowel sounds are normal. EXTREMITIES: FROM in all major joints, no edema, no cyanosis or clubbing. NEURO: Alert and oriented x 3. No acute neurological deficits. Speech is normal and follows commands. SKIN: Dry and warm Triage Information Reviewed: Yes Vital Signs On Initial Exam: Initial Vitals Temp Pulse Resp BP Pulse Ox 97.2 F 116 16 160/106 98 09/03/18 16:01 09/03/18 16:01 09/03/18 16:01 09/03/18 16:01 09/03/18 16:01 Vital Signs Reviewed: Yes Diagnostics - Vital Signs Vital Signs Temp Pulse Resp BP Pulse Ox 09/03/18 16:01 97.2 F 116 16 160/106 98 - Laboratory Result Diagrams: 09/04/18 05:44 09/04/18 05:44 Lab Statement: Any lab studies that have been ordered have been reviewed, and results considered in the medical decision making process. EENT Course/Dx - Course Assessment/Plan: 38-year-old male presents to the emergency room with a right facial swelling. Test result shows that the wishes of 14.3, hemoglobin 16.4, hematocrit 48, platelets 249. CRP is elevated 247 which is significantly increased from previous on 08/27/18 of 48 0.1. In the ED course the patient was given IV fluids, the patient was given morphine for pain, Zofran for nausea and clindamycin IV. Blood work without any significant abnormality except for WBCs of 14.3, sodium 134, chloride 100, CRP 147. The patient is awaiting for the results of the CT of the soft tissue of the neck therefore the patient will be signed out to Dr. Sin at shift change. The patient continues to be hemodynamically stable alert and oriented 3. - Differential Diagnoses Differential Diagnoses: Other - dental infection vs dental abscess - Diagnoses Provider Diagnoses: Dental infection, Dental abscess Discharge - Sign-Out/Discharge Documenting (check all that apply): Sign-Out Patient - pending CT Neck radiology report Signing out patient TO: David Reynaga Patient Received Moderate/Deep Sedation with Procedure: No - Discharge Plan Condition: Stable Disposition: ADMITTED TO [facility] - Billing Disposition and Condition Condition: STABLE Disposition: Admitted to [facility] - Attestation Statements Document Initiated by Mehdie: Yes Documenting Scribe: Gerardo Phillips Provider For Whom Rosanna is Documenting (Include Credential): Mahendra Ruggiero MD Scribe Attestation: Gerardo Lugo, scribed for Mahendra Ruggiero MD on 09/04/18 at 0722. Scribe Documentation Reviewed: Yes Provider Attestation: The documentation as recorded by the Gerardo brownlee accurately reflects the service I personally performed and the decisions made by me, Mahendra Ruggiero MD Status of Scribe Document: Viewed
[2018-09-03 16:50] LABS: Hematocrit 48 % (42-52); Hemoglobin 16.4 g/dl (14.0-18.0); Mean Corpuscular HGB Conc 34 g/dl (31-36); Mean Corpuscular Hemoglobin 30 pg (27-31); Mean Corpuscular Volume 89 fL (80-94); Mean Platelet Volume 8.9 fL (7.4-10.4); Platelet Count 249 10^3/ul (150-450); Red Blood Count 5.44 10^6/ul (4.00-5.40); Red Cell Distribution Width 13 % (10.5-15); White Blood Count 14.3 10^3/ul (3.5-10.8)
[2018-09-03] MEDS ORDERED: PREMIX* 0 ML ONE (16:53)
[2018-09-03 17:11] LABS: ABS Basophils 0.1 10^3/ul (0-0.2); ABS Eosinophils 0.1 10^3/ul (0-0.6); ABS Lymphocytes 1.7 10^3/ul (1.0-4.8); ABS Monocytes 2.1 10^3/ul (0-0.8); ABS Neutrophils 10.4 10^3/ul (1.5-7.7); ABS Nucleated RBC 0 10^3/ul; Eosinophil % 0.7 %; Lymphocyte % 11.9 %; Nucleated Red Blood Cells % 0
[2018-09-03 17:13] LABS: Albumin 4.2 g/dL (3.2-5.2); BUN/Creatinine Ratio 10.8 (8-20); C Reactive Protein 147.85 mg/L (<8.01); Calcium 9.3 mg/dL (8.6-10.3); EGFR African American 144.8 (>60); EGFR Non-African American 119.7 (>60); Globulin 4.2 g/dL (2-4); Potassium 3.7 mmol/L (3.5-5.0); Total Bilirubin 0.5 mg/dL (0.2-1.0); Total Protein 8.4 g/dL (6.4-8.9)
[2018-09-03] MEDS ORDERED: Iohexol 300* (CONTRAST) 10 ML SDV IV ONE (17:14)
[2018-09-03] MEDS ORDERED: Morphine VIAL* 10 MG/ML 1 ML VIAL IV ONE (17:31)
[2018-09-03] MEDS ORDERED: Ondansetron INJ* 2 MG/ML VIAL IV ONE (17:31)
--- NOTE | 2018-09-03 19:10 | ED ---
Progress - Progress Note Progress Note: Patient was signed out by Dr. Ruggiero to Dr. Reynaga, awaiting neck CT results and disposition. - Results/Orders Results/Orders: CT neck: 1. There is worsening of likely cellulitis in the right submandibular region and right face there is a new soft tissue abscess at the deep aspect of the soft tissues adjacent to the right aspect of the mandible with this abscess measuring 3.1 x 1.8 x 3.2 cm. 2. There is increased right-sided level I and level II cervical lymphadenopathy. 3. There is stable dental cavity as well as periapical lucency consistent with periodontal disease/periodontal abscess involving the right mandibular second molar tooth. There is additional stable dental cavity involving a left maxillary molar tooth and left mandibular molar tooth. Course/Dx - Course Course Of Treatment: Patient was signed out by Dr. Ruggiero to Dr. Reynaga, awaiting neck CT results and disposition. CT neck reveals, per radiologist, 1. There is worsening of likely cellulitis in the right submandibular region and right face there is a new soft tissue abscess at the deep aspect of the soft tissues adjacent to the right aspect of the mandible with this abscess measuring 3.1 x 1.8 x 3.2 cm. 2. There is increased right-sided level I and level II cervical lymphadenopathy. 3. There is stable dental cavity as well as periapical lucency consistent with periodontal disease/periodontal abscess involving the right mandibular second molar tooth. There is additional stable dental cavity involving a left maxillary molar tooth and left mandibular molar tooth. ED physician has reviewed this radiology report. Test results with no significant abnormalities. In the ED course the patient was given Zosyn, Clindamycin, Diphenhydramine, Iohexol, Methylprednisone, Morphine, Ondansetron, Piperacillin, and IV fluids. We discussed patient care with Dr. Ly, hospitalist, and they recommended admission. - Diagnoses Provider Diagnoses: Dental infection, Dental abscess - Provider Notifications Discussed Care Of Patient With: Korin Ly Time Discussed With Above Provider: 17:43 Instructed by Provider To: Admit As Inpatient Discharge - Sign-Out/Discharge Documenting (check all that apply): Patient Departure - admission, Receiving Sign-Out Receiving patient FROM: Mahendra Ruggiero Patient Received Moderate/Deep Sedation with Procedure: No - Discharge Plan Condition: Stable Disposition: ADMITTED TO [facility] - Billing Disposition and Condition Condition: STABLE Disposition: Admitted to [facility] - Attestation Statements Document Initiated by Rosanna: Yes Documenting Scribe: Mane Tracey Provider For Whom Rosanna is Documenting (Include Credential): David Reynaga MD Scribe Attestation: Mane Lugo, scribed for David Reynaga MD on 09/04/18 at 0257. Scribe Documentation Reviewed: Yes Provider Attestation: The documentation as recorded by the Mane brownlee accurately reflects the service I personally performed and the decisions made by David meléndez MD Status of Scribe Document: Viewed
[2018-09-03] MEDS ORDERED: ED Piperacillin/Tazobac 3.375 3.375 GM/100 ML PREMIX.SET IVPB ONE (19:46)
[2018-09-03] MEDS ORDERED: diPHENhydraMINE IV* 50 MG/ML 1 ml VIAL (BENADRYL) IV ONE (19:48)
[2018-09-03] MEDS ORDERED: methylPREDNISolone 125 MG* 2 ML VIAL IV ONE (19:48)
[2018-09-03] MEDS ORDERED: Piperacillin/Tazobac (*) 3.375 GM BAG ONE (19:52)
--- NOTE | 2018-09-03 20:54 | CONSULT ---
Consult Consult: I assisted in the care of this patient by performing a dental block and attempted aspiration of dental abscess. Procedure: A dental block was performed on the right lower jaw by inferior alveolar nerve block with a total of 3 cc of 0.5% bupivacaine with epinephrine. This significantly improved his discomfort in the jaw area and helped with some of the trismus. Attempted aspiration with 18-gauge needle in the area of dental abscess seen on CT was performed without obtaining any purulent material. He tolerated both procedures well without complication.
[2018-09-03] MEDS ORDERED: NS 0.9% 1000 ML** 1,000 ML IV SCH (22:00)
[2018-09-03] MEDS ORDERED: Acetaminophen TAB* 325 MG PO PRN (22:08)
[2018-09-03] MEDS ORDERED: Ketorolac INJ* 30 MG/ML 1 ML VIAL ONE (22:35)
[2018-09-03] MEDS: Ketorolac INJ* 30 MG/ML 1 ML VIAL IV PUSH PRN (22:37)
[2018-09-04] MEDS: Chlorhexidine MOUTHWASH 0.12%* 15 ML UDC SWISH SPIT SCH ×4 (00:24→20:48)
[2018-09-04] MEDS: Montelukast Sodium TAB* 10 MG PO SCH ×2 (00:24→20:48)
[2018-09-04] MEDS: Piperacillin/Tazobac ADVAN(*) 3.375 GM in NS 0.9% 100 ML* 100 ML IVPB SCH ×3 (01:18→16:11)
--- NOTE | 2018-09-04 03:16 | HP ---
HISTORY AND PHYSICAL: ATTENDING PHYSICIAN: Korin Ly MD DATE OF ADMISSION: 09/03/18 CHIEF COMPLAINT: Dental pain. PRIMARY CARE PROVIDER: None. SHIPYARD LABORER: Leeann Linton, the patient's mother. CODE STATUS: Full. SOURCE OF INFORMATION: HPI is obtained from the patient and review of medical chart. The patient is an excellent historian. HISTORY OF PRESENT ILLNESS: 38-year-old man with past medical history of tobacco use, who was recently admitted on 08/27/18 and discharged on 08/28/18 for R sided periodontal cellulitis and he is re-presenting tonight for facial pain. The patient reports he was discharged from the hospital on clindamycin PO and was taking medications as prescribed, even setting a timer on his phone to remember to take them. He followed up with his dentist in [place] who said that he did not feel comfortable doing tooth extraction at the site of periodontal cellulitis and referred him to another dentist in [place], who also said that he also felt uncomfortable doing tooth extraction at the site of the periodontal cellulitis. He followed up with [facility] outpatient provider, Dr. Ramos, who added PO metronidazole 3 days prior to admission to his clindamycin due to continued swelling and facial pain with concern for progression of cellulitis. He also had a referral placed to Infectious Disease for progression of cellulitis despite oral antibiotic therapy. The patient reports that this morning he woke up with increased swelling on the right side of his face and pain on swallowing, although able to manage his secretions and keep up with his fluid intake. The pain intensified throughout the course of the day and he started to have systematic symptoms with mild nausea as well as diffuse sweating, chills, and subjective fevers at home. Secondary to these decompensations, he presented to the emergency room with his mother brought by car. His review of systems otherwise as below is wholly negative. EMERGENCY ROOM COURSE: His vital signs are stable. Blood pressure 147/67, temperature is 98.6 on arrival, heart rate 72, and satting 99% on room air. His labs showed a leukocytosis of 14, sodium 134, and CRP elevated at 147. Otherwise, his CBC, BMP, and LFTs were normal. The patient did receive a repeat CT with contrast of his neck, which showed a new 3.2 cm abscess at the right mandible in a soft tissue. Secondary to the thought that the patient was failing oral outpatient antibiotic therapy, the thought was to admit for IV antibiotics with step-up therapy to Zosyn. Unfortunately, the patient has a documented history of rash to penicillins, although on further clarification with the patient's mother, it was really quite unclear if this rash was secondary to penicillins or another symptom of a childhood illness. He has not had penicillin since and thus they elected to try premedication with Solu-Medrol , diphenhydramine, and then later administration with pip-tazo, which he tolerated very well. He also received ondansetron 4 mg and normal saline 1000 mL bolus and a dental block at the right lower jaw via inferior alveolar nerve block before the hospitalist team was called to evaluate the patient for further treatment and evaluation for a presumed periodontal abscess. PAST MEDICAL HISTORY: The patient is a tobacco user. PAST SURGICAL HISTORY: He has a right ACL repair. ALLERGIES: He has a headache to SOMA and has mild PENICILLIN allergy with distant documented rash. FAMILY HISTORY: His father is of natural causes at age 56 and mother is living with a past medical history of hypertension. SOCIAL HISTORY: He lives at home with his and children. 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 Tobacco use, he smokes 1 pack per day for the last 15 years, recently trying to quit. He is a social alcohol drinker with less than 3 drinks per week and he denies any use of illicit substances. MEDICATIONS: Ibuprofen 600mg PO Q6 HR PRN for pain Clindamycin 300mg QID Metronidazole 500mg PO BID Tramadol 50mg PO QID for pain REVIEW OF SYSTEMS: Constitutional: Positive for fevers, chills, and sweating as well as malaise. HEENT: Denies headache or vision changes. Does endorse right- sided mouth pain and mild difficulty swallowing. Cardiovascular: Denies chest pain, palpitations. Respiratory: Denies shortness of breath or cough, pleuritic chest pain. GI: Denies lilibeth abdominal pain. Does endorse mild nausea and no episodes of vomiting. No diarrhea or constipation. : Denies dysuria or hematuria. Musculoskeletal: Denies myalgias, arthralgias, or weakness. Skin: Denies any new rashes or lesions. Neurologic: Denies any focal weakness or numbness. Psychiatric: Denies depression or anxiety. Endocrine: Denies polyuria or polydipsia. Heme: Denies bruising, bleeding. Does endorse cervical lymphadenopathy. Allergy/Immune: Denies any seasonal allergies. PHYSICAL EXAMINATION GENERAL: This is a well-developed, well-nourished young man, lying in bed with some perspiration, mildly ill appearing. VITAL SIGNS: At time of physical exam, the temperature is 99.7, heart rate is 100, respiratory rate 15, satting 97% on room air and blood pressure is 160/80. HEENT: He has significant right-sided facial swelling that extends into the right neck. Sclerae are anicteric. Pupils are equal and reactive. Mouth has dry mucous membranes and fair dentition, unable to open mouth beyond about 4 cm. NECK: Supple. He has significant cervical lymphadenopathy to 2 cm with shotty nodes along the right side of the patient's neck. Left side with mild cervical lymphadenopathy of just to 1 cm. No supraclavicular lymphadenopathy or axillary lymphadenopathy. RESPIRATORY: Lungs are clear to auscultation bilaterally. CARDIAC: Regular rate and rhythm with no murmurs, rubs, or gallops. GI: Belly is soft, nontender, nondistended, with normoactive bowel sounds in all 4 quadrants. SKIN: Notable for diffuse perspiration, but otherwise no rashes or lesions. MUSCULOSKELETAL: He moves all 4 extremities freely with full range of motion. NEUROLOGIC: Cranial nerves II through XII are intact. He is A and O x3. He has no focal neurologic deficits. PSYCH: He has a pleasant affect and cooperative on exam. DIAGNOSTIC STUDIES/LAB DATA: He has a CBC: White blood cell count was 14.3, hemoglobin 16.4, hematocrit 48, platelets 249. BMP: Sodium of 134, potassium of 3.7, chloride of 100, carbon dioxide of 25, BUN of 8, creatinine of 0.74, glucose of 100, lactic acid 0.9, AST of 14, ALT of 19, alkaline phosphatase of 83. CRP elevated at 147.8. Imaging done shows CT of neck, which shows worsening cellulitis in the right submandibular region and right face. There is new soft tissue abscess at the deep aspect of the soft tissues adjacent to the right aspect of the mandible with this abscess measuring 3.1 x 1.8 x 3.2 cm. Furthermore, increased right- sided level 1 and level 2 cervical lymphadenopathy. Imaging and labs were reviewed by myself. ASSESSMENT AND PLAN: This is a 38-year-old male with a past medical of tobacco use, who was recently admitted on 08/27/18 for periodontal cellulitis, who is re - presenting tonight for facial pain and found to have a right periodontal abscess in the setting of failing outpatient therapy. 1. Periodontal abscess. We will cover with broad spectrum secondary to outpatient failure. On history taking, the patient was wholly compliant with his outpatient regimen even going so far as setting alarms on his phone to be able to take clindamycin and Flagyl regularly. We will premedicate with montelukast and Benadryl for continuing Zosyn IV q.6 hours. We will start chlorhexidine mouthwash q.i.d. --We will likely need oral maxillofacial surgery involvement and we will get in touch with the team tomorrow. --For pain management, we will start the patient on standing 30 mg of Toradol IV q.6 hours and p.r.n. tramadol, which is the home med that he has been on over the past week with good control of his pain. --Will check HIV for any risk of immunosuppression 2. Hyponatremia. This is mild secondary to hypovolemia. We will continue the patient on IV fluids at 125 cc/hour for an additional 1 L. 3. Tobacco use. We will offer nicotine replacement via patch and lozenge p.r.n. 4. Deep venous thrombosis. This patient is able to ambulate and will be so unrestricted. He is low risk from a DVT prophylaxis standpoint. 5. Fluids, electrolytes, nutrition. The patient may have an unrestricted diet , although will probably tolerate soft foods better and will inform this to nursing care via provided nursing note. 6. Code status is full. Plan of care was reviewed with the patient and his mother and who are in agreement with admission to the hospital and possible further examination by oral maxillofacial surgeon. PCP will be notified during this hospitalization. TIME SPENT: Thirty five minutes were spent in the planning and execution of this admission and history and physical with over half of that spent directly at the bedside with the patient providing direct patient care. [id number]/CPS #: [id number] FRANCIS
[2018-09-04] MEDS: Ketorolac INJ* 30 MG/ML 1 ML VIAL IV PUSH PRN ×3 (05:17→19:58)
[2018-09-04 05:56] LABS: ABS Basophils 0.1 10^3/ul (0-0.2); ABS Eosinophils 0 10^3/ul (0-0.6); ABS Monocytes 0.4 10^3/ul (0-0.8); ABS Neutrophils 9.4 10^3/ul (1.5-7.7); ABS Nucleated RBC 0 10^3/ul; Eosinophil % 0 %; Hematocrit 47 % (42-52); Hemoglobin 15.6 g/dl (14.0-18.0); Mean Corpuscular HGB Conc 34 g/dl (31-36); Mean Corpuscular Hemoglobin 30 pg (27-31); Mean Corpuscular Volume 89 fL (80-94); Mean Platelet Volume 9.2 fL (7.4-10.4); Nucleated Red Blood Cells % 0.1; Platelet Count 252 10^3/ul (150-450); Red Blood Count 5.22 10^6/ul (4.00-5.40); Red Cell Distribution Width 13 % (10.5-15); White Blood Count 10.9 10^3/ul (3.5-10.8)
[2018-09-04 06:15] LABS: BUN/Creatinine Ratio 9.8 (8-20); Calcium 9.1 mg/dL (8.6-10.3); EGFR African American 128.6 (>60); EGFR Non-African American 106.3 (>60); Potassium 4.3 mmol/L (3.5-5.0)
[2018-09-04] MEDS: diPHENhydraMINE IV* 50 MG/ML 1 ml VIAL (BENADRYL) SLOW PUSH PRN ×3 (08:03→23:36)
--- NOTE | 2018-09-04 08:51 | PN ---
Subjective Date of Service: 09/04/18 Interval History: Patient resting in bed with partner at bedside. Patient is tearful and reporting he is frustrated with this ongoing issues. Patient reports pain to right lower jaw and right neck "where swelling is". Denies difficulty swallowing or breathing. Reports difficulty opening mouth wide enough to eat with utensils. Also reports pain with chewing. Denies cp, palpitations, sob, nausea, vomiting, diarrhea, fever, chills Objective Active Medications: Acetaminophen (Tylenol Tab*) 650 mg PO Q6H PRN PRN Reason: FEVER/PAIN Chlorhexidine Gluconate (Peridex Mouth Wash 0.12%*) 15 ml SWISH SPIT TID [facility] Last Admin: 09/04/18 00:24 Dose: 15 ml Diphenhydramine HCl (Benadryl Iv*) 25 mg SLOW PUSH Q8H PRN PRN Reason: Allergy Symptoms Last Admin: 09/04/18 08:03 Dose: 25 mg Piperacillin Sod/Tazobactam (Sod 3.375 gm/ Sodium Chloride) 100 mls @ 25 mls/ hr IVPB Q8H [facility] Last Admin: 09/04/18 08:35 Dose: 25 mls/hr Ketorolac Tromethamine (Toradol Inj*) 30 mg IV PUSH Q6H PRN PRN Reason: PAIN Last Admin: 09/04/18 05:17 Dose: 30 mg Montelukast Sodium (Singulair Tab*) 10 mg PO BEDTIME [facility] Last Admin: 09/04/18 00:24 Dose: 10 mg Tramadol HCl (Ultram*) 50 mg PO Q8HR PRN PRN Reason: PAIN - MODERATE TO SEVERE Vital Signs - 8 hr 09/04/18 09/04/18 03:31 08:03 Temperature 97.3 F Pulse Rate 74 Respiratory 16 18 Rate Blood Pressure 129/72 (mmHg) O2 Sat by Pulse 98 Oximetry Oxygen Devices in Use Now: None Appearance: Tearful, NAD Eyes: No Scleral Icterus Ears/Nose/Mouth/Throat: Clear Oropharnyx, Mucous Membranes Moist, - - Swelling and induration to right posterior check. Neck: - - Supple. Swelling to right side directly underneath jaw near anterior cervical lymphnodes Respiratory: Symmetrical Chest Expansion and Respiratory Effort, Clear to Auscultation Cardiovascular: NL Sounds; No Murmurs; No JVD, RRR, No Edema Abdominal: NL Sounds; No Tenderness; No Distention Lymphatic: - - Cervial adenopathy on right as mentioned above Extremities: No Clubbing, Cyanosis Skin: No Rash or Ulcers Neurological: Alert and Oriented x 3 Nutrition: Taking PO's Result Diagrams: 09/04/18 05:44 09/04/18 05:44 Additional Lab and Data: Laboratory Results - last 24 hr 09/03/18 09/03/18 09/03/18 16:41 16:41 16:41 WBC 14.3 H RBC 5.44 H Hgb 16.4 Hct 48 MCV 89 MCH 30 MCHC 34 RDW 13 Plt Count 249 MPV 8.9 Neut % (Auto) 72.2 Lymph % (Auto) 11.9 [place] % (Auto) 14.7 Eos % (Auto) 0.7 Baso % (Auto) 0.5 Absolute Neuts (auto) 10.4 H Absolute Lymphs (auto) 1.7 Absolute Monos (auto) 2.1 H Absolute Eos (auto) 0.1 Absolute Basos (auto) 0.1 Absolute Nucleated RBC 0 Nucleated RBC % 0 Sodium 134 L Potassium 3.7 Chloride 100 L Carbon Dioxide 25 Anion Gap 9 BUN 8 Creatinine 0.74 Est GFR ( Amer) 144.8 Est GFR (Non-Af Amer) 119.7 BUN/Creatinine Ratio 10.8 Glucose 100 Lactic Acid 0.9 Calcium 9.3 Total Bilirubin 0.50 AST 14 ALT 19 Alkaline Phosphatase 83 C-Reactive Protein 147.85 H Total Protein 8.4 Albumin 4.2 Globulin 4.2 H Albumin/Globulin Ratio 1.0 09/04/18 09/04/18 05:44 05:44 WBC 10.9 H RBC 5.22 Hgb 15.6 Hct 47 MCV 89 MCH 30 MCHC 34 RDW 13 Plt Count 252 MPV 9.2 Neut % (Auto) 86.5 Lymph % (Auto) 9.0 [place] % (Auto) 3.9 Eos % (Auto) 0 Baso % (Auto) 0.6 Absolute Neuts (auto) 9.4 H Absolute Lymphs (auto) 1.0 Absolute Monos (auto) 0.4 Absolute Eos (auto) 0 Absolute Basos (auto) 0.1 Absolute Nucleated RBC 0 Nucleated RBC % 0.1 Sodium 136 Potassium 4.3 Chloride 104 Carbon Dioxide 25 Anion Gap 7 BUN 8 Creatinine 0.82 Est GFR ( Amer) 128.6 Est GFR (Non-Af Amer) 106.3 BUN/Creatinine Ratio 9.8 Glucose 139 H Lactic Acid Calcium 9.1 Total Bilirubin AST ALT Alkaline Phosphatase C-Reactive Protein Total Protein Albumin Globulin Albumin/Globulin Ratio Assess/Plan/Problems-Billing Assessment: 38 yr old make with pmh of tobacco use who has failed outpatient treatment for right sided periodontal cellulitis who presented the ed with facial pain - Patient Problems (1) Periodontal abscess Comment: - CT of neck revealed likely cellulitis of right submandibular region and right face, new abscess at the deep aspect of the soft tissues adjacent to the right aspect of the mandible measuring 3.1 x 1.8 x 3.2 cm - Cont Zosyn - ID consult entered (2) Hyponatremia Comment: - Resolved (3) Tobacco use Comment: - Encourage cessation (4) SIRS (systemic inflammatory response syndrome) Comment: - On presentation to ED patient mets SIRS criteria with HR > 90, WBC > 12, and present sourse of infection - Ewing cultures, IVF provided, and abx started - SIRS resolved (5) DVT prophylaxis Comment: - Encourage ambulation Status and Disposition: Inpatient for IV abx due to failing outpatient treatment. D/C home when medically stable Attending: Sid Rendon
[2018-09-04] MEDS: traMADol TAB* 50 MG PO PRN ×2 (15:39→23:35)
[2018-09-05] MEDS: Piperacillin/Tazobac ADVAN(*) 3.375 GM in NS 0.9% 100 ML* 100 ML IVPB SCH ×3 (00:13→16:46)
[2018-09-05] MEDS: Ketorolac INJ* 30 MG/ML 1 ML VIAL IV PUSH PRN ×3 (02:37→14:53)
[2018-09-05 06:39] LABS: Hematocrit 42 % (42-52); Hemoglobin 14.2 g/dl (14.0-18.0); Mean Corpuscular HGB Conc 34 g/dl (31-36); Mean Corpuscular Hemoglobin 30 pg (27-31); Mean Corpuscular Volume 89 fL (80-94); Mean Platelet Volume 9.1 fL (7.4-10.4); Platelet Count 242 10^3/ul (150-450); Red Blood Count 4.69 10^6/ul (4.00-5.40); Red Cell Distribution Width 13 % (10.5-15); White Blood Count 13.4 10^3/ul (3.5-10.8)
[2018-09-05] MEDS: traMADol TAB* 50 MG PO PRN (07:44)
[2018-09-05] MEDS: diPHENhydraMINE IV* 50 MG/ML 1 ml VIAL (BENADRYL) SLOW PUSH PRN ×3 (07:44→23:51)
[2018-09-05 08:09] LABS: ABS Basophils 0.1 10^3/ul (0-0.2); ABS Eosinophils 0.1 10^3/ul (0-0.6); ABS Lymphocytes 2.8 10^3/ul (1.0-4.8); ABS Monocytes 1.8 10^3/ul (0-0.8); ABS Neutrophils 8.5 10^3/ul (1.5-7.7); ABS Nucleated RBC 0 10^3/ul; Eosinophil % 0.7 %; Lymphocyte % 21.2 %; Nucleated Red Blood Cells % 0
[2018-09-05] MEDS: Chlorhexidine MOUTHWASH 0.12%* 15 ML UDC SWISH SPIT SCH ×3 (08:38→20:10)
--- NOTE | 2018-09-05 11:37 | CONS ---
CONSULTATION REPORT: DATE OF CONSULT: 09/05/18 REQUESTING PHYSICIAN: Korin Ly MD. CONSULTING SERVICE: Infectious Disease. REASON FOR CONSULTATION: Right submandibular abscess in the setting of right molar caries. IMPRESSION: 1. Right submandibular abscess and cellulitis, right molar caries, has been on oral antibiotics for a couple of weeks with development of the abscess, persistent pain, white count about the same. Mild trismus. 2. PENICILLIN allergy as a child with some rash, tolerating Zosyn fine. RECOMMENDATIONS: 1. We will continue Zosyn. We will talk with ENT to see if they think the collection is drainable and then with oral surgery to try and arrange extraction of the molar. HISTORY OF PRESENT ILLNESS: This is a 38-year-old man who has been suffering with a right tooth infection for off and on last few months. It started in February, had some oral antibiotics with improvement. It has come back a couple times since. Then mid August, it got more severe with right face and jaw swelling. He was admitted here on oral antibiotics and IV and discharged on oral clindamycin, which he had been taking; but, because of progression of pain and swelling of right lower jaw and some mild trismus, he came to the hospital on the 09/03/18. His white count was 14. He was started on Zosyn. It was down to 10 yesterday and and 13 today. The pain and swelling was he thought better yesterday, but then worse again today. Trismus about the same. He is able to swallow and breathe okay. He has no neck or chest pain. He has been afebrile. He has not had infection requiring hospitalization in the past. PAST MEDICAL HISTORY: 1. Tobacco use. 2. Status post right ACL repair. MEDICATIONS: 1. Tylenol/chlorhexidine by mouth swish and spit. 2. Ketorolac as needed. 3. Tramadol as needed. 4. Zosyn 3.375 mg every 8 hours. ALLERGIES: PENICILLIN caused rash as a child. FAMILY HISTORY: No recurrent infections. SOCIAL HISTORY: Lives in [place]. 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 No injections or drugs. REVIEW OF SYSTEMS: All negative to 14-point review except as noted above in the history of present illness. PHYSICAL EXAMINATION: Vital Signs: Temperature is 37, heart rate 85, respiratory rate 16, blood pressure 136/86, oxygen saturation 98% on room air. In general, he is awake, not in distress. Neurologic: He is oriented x3, follows all commands. HEENT: There is no conjunctival hemorrhage. Oropharynx without lesions. There is right facial edema and slight induration along the angle of the mandible and the submandibular area. No crepitus or fluctuance. He has mild trismus. Neck is supple without mass. Heart: Regular rate and rhythm without murmurs, rubs, or gallops. Lungs: Clear to auscultation bilaterally. Abdomen: Soft, nontender, nondistended. Bowel sounds present. Skin: There is no rash or splinter hemorrhage. Musculoskeletal: There is no spine or chest tenderness to palpation. LABORATORY DATA: White blood cell count 13, hemoglobin 14, platelets 242, creatinine 0.8. CRP 60, down from 150. Please see impressions and recommendations outlined above, which I have discussed with Luz Good NP. I thank you for asking me to see Mr. Le in consultation. [id number]/CPS #: [id number] [facility] HOSPITALJonatan
--- NOTE | 2018-09-05 18:04 | PN ---
Subjective Date of Service: 09/05/18 Interval History: Patient resting in bed with mother at bedside. Reports pain in right side of face/jaw is slightly worse today. Reports he is disappointed as swelling has not decreased as much as he hoped it would. Reports the only medication that helps is Toradol, but it is not frequent enough to keep pain at bay. Reports Ultram is not helpful. Denies difficulty swallowing or breathing, cp, sob, fever, chills, nausea, vomiting, diarrhea. Received call from nurse this evening that patient's abscess in mouth was leaking a bit as he was spitting out purulent drainage Objective Active Medications: Acetaminophen (Tylenol Tab*) 650 mg PO Q6H PRN PRN Reason: FEVER/PAIN Chlorhexidine Gluconate (Peridex Mouth Wash 0.12%*) 15 ml SWISH SPIT TID [facility] Last Admin: 09/05/18 14:53 Dose: 15 ml Diphenhydramine HCl (Benadryl Iv*) 25 mg SLOW PUSH Q8H PRN PRN Reason: Allergy Symptoms Last Admin: 09/05/18 16:07 Dose: 25 mg Piperacillin Sod/Tazobactam (Sod 3.375 gm/ Sodium Chloride) 100 mls @ 25 mls/ hr IVPB Q8H [facility] Last Admin: 09/05/18 16:46 Dose: 25 mls/hr Ketorolac Tromethamine (Toradol Inj*) 30 mg IV PUSH Q6H PRN PRN Reason: PAIN Last Admin: 09/05/18 14:53 Dose: 30 mg Montelukast Sodium (Singulair Tab*) 10 mg PO BEDTIME [facility] Last Admin: 09/04/18 20:48 Dose: 10 mg Tramadol HCl (Ultram*) 50 mg PO Q8HR PRN PRN Reason: PAIN - MODERATE TO SEVERE Last Admin: 09/05/18 07:44 Dose: 50 mg Vital Signs - 8 hr 09/05/18 09/05/18 09/05/18 11:34 15:58 16:07 Temperature 97.8 F 97.2 F Pulse Rate 78 80 Respiratory 16 20 16 Rate Blood Pressure 138/80 153/93 (mmHg) O2 Sat by Pulse 97 98 Oximetry 09/05/18 17:08 Temperature Pulse Rate Respiratory 16 Rate Blood Pressure (mmHg) O2 Sat by Pulse Oximetry Oxygen Devices in Use Now: None Appearance: Comfortable, NAD Eyes: No Scleral Icterus Ears/Nose/Mouth/Throat: Mucous Membranes Moist, - Neck: - - Swelling to right side of neck below jaw and near anterior cervical nodes. Respiratory: Symmetrical Chest Expansion and Respiratory Effort, Clear to Auscultation Cardiovascular: NL Sounds; No Murmurs; No JVD, RRR, No Edema Abdominal: NL Sounds; No Tenderness; No Distention Extremities: No Clubbing, Cyanosis Skin: No Rash or Ulcers Neurological: Alert and Oriented x 3, NL Muscle Strength and Tone Nutrition: Taking PO's - Nutrition: Malnutrition Diagnosis/Plan Malnutrition Assessment by Registered Dietitian: Malnutrition Assessment Clinical Characteristics Acute,Moderate Malnutrition Assessment: - wt loss 7.1% in past two weeks Criteria - po intake < 75% EEE X > 7 days Malnutrition Assessment: 1. pt would like to try mech ground textures Interventions prior to pureed; menu adjusted appropriately 2. begin Ensure Enlive @ B and D meal (350 kcals , 20 g prot/serv) Malnutrition Assessment: Goals 1. adequate po intake to support hydration and lean body mass without further wt loss 2. pt will tolerate least-restrictive diet texture without difficulty chewing and/or swallowing 3. maintain serum electrolytes WNL 4. regulation of bowel pattern; no c/o diarrhea r/t abx Result Diagrams: 09/05/18 06:23 09/04/18 05:44 Additional Lab and Data: Laboratory Results - last 24 hr 09/04/18 09/05/18 09/05/18 05:44 06:23 06:23 WBC 13.4 H RBC 4.69 Hgb 14.2 Hct 42 MCV 89 MCH 30 MCHC 34 RDW 13 Plt Count 242 MPV 9.1 Neut % (Auto) 63.5 Lymph % (Auto) 21.2 [place] % (Auto) 13.7 Eos % (Auto) 0.7 Baso % (Auto) 0.9 Absolute Neuts (auto) 8.5 H Absolute Lymphs (auto) 2.8 Absolute Monos (auto) 1.8 H Absolute Eos (auto) 0.1 Absolute Basos (auto) 0.1 Absolute Nucleated RBC 0 Nucleated RBC % 0 C-Reactive Protein 66.05 H HIV 1&2 Antibody Nonreactive Microbiology and Other Data: Microbiology 09/05/18 17:20 Mouth Gram Stain - Final 09/03/18 16:41 Blood Venous Aerobic Blood Culture - Preliminary No Growth Day 2 09/03/18 16:41 Blood Venous Anaerobic Blood Culture - Preliminary No Growth Day 2 09/03/18 16:41 Blood Venous Aerobic Blood Culture - Preliminary No Growth Day 2 09/03/18 16:41 Blood Venous Anaerobic Blood Culture - Preliminary No Growth Day 2 Assess/Plan/Problems-Billing Assessment: 38 yr old make with pmh of tobacco use who has failed outpatient treatment for right sided periodontal cellulitis who presented the ed with facial pain - Patient Problems (1) Periodontal abscess Comment: - CT of neck revealed likely cellulitis of right submandibular region and right face, new abscess at the deep aspect of the soft tissues adjacent to the right aspect of the mandible measuring 3.1 x 1.8 x 3.2 cm - Cont Zosyn - ID consulting - Plan for OR tomorrow with ENT for drainage of abscess; Will be NPO after midnight - Did have some drainage this evening per nursing so culture sent (2) Hyponatremia Comment: - Resolved (3) Tobacco use Comment: - Encourage cessation (4) SIRS (systemic inflammatory response syndrome) Comment: - On presentation to ED patient mets SIRS criteria with HR > 90, WBC > 12, and present sourse of infection - Ewing cultures, IVF provided, and abx started - SIRS resolved (5) DVT prophylaxis Comment: - Encourage ambulation Status and Disposition: Inpatient for IV abx due to failing outpatient treatment. D/C home when medically stable Attending: Sid Rendon
[2018-09-05] MEDS: oxyCODONE/Acetamin 5/325 MG* TAB PO PRN (20:09)
[2018-09-05] MEDS: Montelukast Sodium TAB* 10 MG PO SCH (20:10)
--- NOTE | 2018-09-05 23:01 | CONS ---
CONSULTATION REPORT: DATE OF CONSULT: 09/05/18 REQUESTING PHYSICIANS: Hospital service and Dr. Turner. E BUSINESS MANAGER: Dr. Richardson. HISTORY OF PRESENT ILLNESS: This pleasant 38-year-old presented with right- sided dental abscess. He had a previous abscess in February. Unfortunately, the tooth was not removed at that time. The patient has had a recurrence of dental abscess and now has a optimization analyst space abscess, was admitted since Wednesday with trismus and dysphagia, as well as neck swelling. PHYSICAL EXAMINATION: On examination, he has moderate trismus, able to open his mouth less than 1.5 cm. There is an area of necrotic draining band in the pterygoid area. There is an infected tooth. The patient's neck has induration. He is able to swallow without difficulty. CLINICAL IMPRESSION: CT scan shows optimization analyst abscess. Dental infection. PLAN: Plan is for incision and drainage of optimization analyst space abscess and possible removal of tooth. He is n.p.o. tonight, possible surgery tomorrow. [id number]/[facility] #: [id number] FRANCIS
[2018-09-06] MEDS: Ketorolac INJ* 30 MG/ML 1 ML VIAL IV PUSH PRN ×3 (00:25→16:56)
[2018-09-06] MEDS: Piperacillin/Tazobac ADVAN(*) 3.375 GM in NS 0.9% 100 ML* 100 ML IVPB SCH ×3 (00:25→17:21)
[2018-09-06 07:06] LABS: ABS Basophils 0.1 10^3/ul (0-0.2); ABS Eosinophils 0.2 10^3/ul (0-0.6); ABS Lymphocytes 2.7 10^3/ul (1.0-4.8); ABS Monocytes 0.9 10^3/ul (0-0.8); ABS Nucleated RBC 0 10^3/ul; Eosinophil % 2.4 %; Hematocrit 40 % (42-52); Hemoglobin 13.5 g/dl (14.0-18.0); Lymphocyte % 39.3 %; Mean Corpuscular HGB Conc 34 g/dl (31-36); Mean Corpuscular Hemoglobin 30 pg (27-31); Mean Corpuscular Volume 89 fL (80-94); Mean Platelet Volume 9.1 fL (7.4-10.4); Nucleated Red Blood Cells % 0.1; Platelet Count 250 10^3/ul (150-450); Red Blood Count 4.49 10^6/ul (4.00-5.40); Red Cell Distribution Width 13 % (10.5-15); White Blood Count 6.9 10^3/ul (3.5-10.8)
[2018-09-06 07:16] LABS: INR 1.11 (0.77-1.02)
[2018-09-06] MEDS: diPHENhydraMINE IV* 50 MG/ML 1 ml VIAL (BENADRYL) SLOW PUSH PRN ×2 (07:33→16:55)
[2018-09-06] MEDS: Chlorhexidine MOUTHWASH 0.12%* 15 ML UDC SWISH SPIT SCH ×3 (08:12→21:38)
[2018-09-06] MEDS ORDERED: Lidocaine 2% PF * 5 ML VIAL ONE (13:46)
[2018-09-06] MEDS ORDERED: Propofol* 10 MG/ML 20 ML BTL ONE (13:46)
[2018-09-06] MEDS ORDERED: Lidocaine 4% TOPICAL* 50 ML TOP.SOLN TOPICAL ONE (14:00)
[2018-09-06] MEDS ORDERED: Lidocaine 2% JELLY* 20 ML (for OR use) ONE (14:01)
[2018-09-06] MEDS ORDERED: Glycopyrrolate IV* 0.2 MG/ML 1 ML VIAL ONE (14:02)
[2018-09-06] MEDS ORDERED: Midazolam* 1 MG/ML 5 ML VIAL (5 MG) ONE (14:08)
[2018-09-06] MEDS ORDERED: Rocuronium* 10 MG/ML VIAL ONE (14:40)
[2018-09-06] MEDS ORDERED: fentaNYL* 50 MCG/ML 2 ML VIAL (100 MCG VIAL) ONE ×2 (14:43→15:27)
[2018-09-06] MEDS ORDERED: Gelfoam 12-7 ADSORBABL SPONGE* 1 EA SPONGE ONE (14:43)
[2018-09-06] MEDS ORDERED: Sugammadex * 500 MG/5 ML VIAL IV PUSH ONE (14:43)
[2018-09-06] MEDS ORDERED: Metoclopramide IV* 5 MG/ML 2 ML VIAL ONE (14:55)
[2018-09-06] MEDS ORDERED: Ondansetron INJ* 2 MG/ML VIAL ONE (14:55)
[2018-09-06] MEDS ORDERED: Naloxone* 0.4 MG/ML 1 ML VIAL IV PRN (15:11)
[2018-09-06] MEDS ORDERED: Acetaminophen IV 1GM/100ML * 1,000 MG/100 ML VIAL IVPB ONE (15:11)
[2018-09-06] MEDS ORDERED: Acetaminophen IV 1GM/100ML * 100 ML ONE (15:15)
[2018-09-06] MEDS: fentaNYL* 50 MCG/ML 2 ML VIAL (100 MCG VIAL) IV PRN ×4 (15:28→15:47)
[2018-09-06] MEDS ORDERED: hydrALAZINE IV* 20 MG/ML VIAL ONE (15:38)
--- NOTE | 2018-09-06 20:41 | PN ---
Subjective Date of Service: 09/06/18 Interval History: Resting in bed. NPO status for OR today. Reports pain and swelling to right side of face/jaw feel "about the same". Denies cp, sob, palpitations, nausea, vomiting, diarrhea, fever, chills, cough. Objective Active Medications: Acetaminophen (Tylenol Tab*) 650 mg PO Q6H PRN PRN Reason: FEVER/PAIN Chlorhexidine Gluconate (Peridex Mouth Wash 0.12%*) 15 ml SWISH SPIT TID [facility] Last Admin: 09/06/18 15:04 Dose: Not Given Diphenhydramine HCl (Benadryl Iv*) 25 mg SLOW PUSH Q8H PRN PRN Reason: Allergy Symptoms Last Admin: 09/06/18 16:55 Dose: 25 mg Piperacillin Sod/Tazobactam (Sod 3.375 gm/ Sodium Chloride) 100 mls @ 25 mls/ hr IVPB Q8H [facility] Last Admin: 09/06/18 17:21 Dose: 25 mls/hr Ketorolac Tromethamine (Toradol Inj*) 30 mg IV PUSH Q6H PRN PRN Reason: PAIN Last Admin: 09/06/18 16:56 Dose: 30 mg Montelukast Sodium (Singulair Tab*) 10 mg PO BEDTIME [facility] Last Admin: 09/05/18 20:10 Dose: 10 mg Oxycodone/Acetaminophen (Percocet 5/325 Tab*) 1 tab PO Q6H PRN PRN Reason: PAIN Last Admin: 09/05/18 20:09 Dose: 1 tab Tramadol HCl (Ultram*) 50 mg PO Q8HR PRN PRN Reason: PAIN - MODERATE TO SEVERE Last Admin: 09/05/18 07:44 Dose: 50 mg Vital Signs - 8 hr 09/06/18 09/06/18 09/06/18 15:10 15:14 15:16 Temperature 97.2 F Pulse Rate 78 65 62 Respiratory 18 18 Rate Blood Pressure 175/100 184/101 (mmHg) O2 Sat by Pulse 100 100 100 Oximetry 09/06/18 09/06/18 09/06/18 15:21 15:26 15:28 Temperature Pulse Rate 70 69 Respiratory 17 15 22 Rate Blood Pressure 179/113 167/113 (mmHg) O2 Sat by Pulse 98 99 Oximetry 09/06/18 09/06/18 09/06/18 15:31 15:33 15:41 Temperature Pulse Rate 69 Respiratory 19 14 14 Rate Blood Pressure 175/112 (mmHg) O2 Sat by Pulse 98 Oximetry 09/06/18 09/06/18 09/06/18 15:46 15:47 16:00 Temperature Pulse Rate 69 69 Respiratory 19 18 18 Rate Blood Pressure 164/118 (mmHg) O2 Sat by Pulse 98 100 Oximetry 09/06/18 09/06/18 09/06/18 16:01 16:15 16:16 Temperature 98.1 F Pulse Rate 67 70 Respiratory 18 20 Rate Blood Pressure 169/120 166/88 (mmHg) O2 Sat by Pulse 97 98 Oximetry 09/06/18 09/06/18 09/06/18 16:35 16:55 17:19 Temperature 97.6 F Pulse Rate 61 Respiratory 14 16 16 Rate Blood Pressure 169/84 (mmHg) O2 Sat by Pulse 100 Oximetry 09/06/18 09/06/18 17:45 18:03 Temperature 97.0 F Pulse Rate 59 Respiratory 14 16 Rate Blood Pressure 147/78 (mmHg) O2 Sat by Pulse 100 Oximetry Oxygen Devices in Use Now: None Appearance: Comfortable, NAD Eyes: No Scleral Icterus Ears/Nose/Mouth/Throat: Clear Oropharnyx, Mucous Membranes Moist, - - Induration to inner upper right check Neck: NL Appearance and Movements; NL JVP, - - Swelling mildy decreased to right lower jaw and anterior cervical area Respiratory: Symmetrical Chest Expansion and Respiratory Effort, Clear to Auscultation Cardiovascular: NL Sounds; No Murmurs; No JVD, RRR, No Edema Abdominal: NL Sounds; No Tenderness; No Distention Lymphatic: - - Right anterior cervical lymphadenopathy Extremities: No Clubbing, Cyanosis Skin: No Rash or Ulcers Neurological: Alert and Oriented x 3 Nutrition: - - NPO - Nutrition: Malnutrition Diagnosis/Plan Malnutrition Assessment by Registered Dietitian: Malnutrition Assessment Clinical Characteristics Acute,Moderate Malnutrition Assessment: - wt loss 7.1% in past two weeks Criteria - po intake < 75% EEE X > 7 days Malnutrition Assessment: 1. pt would like to try mech ground textures Interventions prior to pureed; menu adjusted appropriately 2. begin Ensure Enlive @ B and D meal (350 kcals , 20 g prot/serv) Malnutrition Assessment: Goals 1. adequate po intake to support hydration and lean body mass without further wt loss 2. pt will tolerate least-restrictive diet texture without difficulty chewing and/or swallowing 3. maintain serum electrolytes WNL 4. regulation of bowel pattern; no c/o diarrhea r/t abx Result Diagrams: 09/06/18 06:26 09/04/18 05:44 Additional Lab and Data: Laboratory Results - last 24 hr 09/06/18 09/06/18 06:26 06:26 WBC 6.9 RBC 4.49 Hgb 13.5 L Hct 40 L MCV 89 MCH 30 MCHC 34 RDW 13 Plt Count 250 MPV 9.1 Neut % (Auto) 44.1 Lymph % (Auto) 39.3 [place] % (Auto) 13.0 Eos % (Auto) 2.4 Baso % (Auto) 1.2 Absolute Neuts (auto) 3.0 Absolute Lymphs (auto) 2.7 Absolute Monos (auto) 0.9 H Absolute Eos (auto) 0.2 Absolute Basos (auto) 0.1 Absolute Nucleated RBC 0 Nucleated RBC % 0.1 INR (Anticoag Therapy) 1.11 H Microbiology and Other Data: Microbiology 09/03/18 16:41 Blood Venous Aerobic Blood Culture - Preliminary No Growth Day 3 09/03/18 16:41 Blood Venous Anaerobic Blood Culture - Preliminary No Growth Day 3 09/03/18 16:41 Blood Venous Aerobic Blood Culture - Preliminary No Growth Day 3 09/03/18 16:41 Blood Venous Anaerobic Blood Culture - Preliminary No Growth Day 3 09/05/18 17:20 Mouth Skin and Soft Tissue MRSA/MSSA (PCR - Final Mrsa Negative S.aureus Negative 09/05/18 17:20 Mouth Gram Stain - Final 09/05/18 17:20 Mouth Wound Culture - Preliminary No Growth Day 1 Assess/Plan/Problems-Billing Assessment: 38 yr old make with pmh of tobacco use who has failed outpatient treatment for right sided periodontal cellulitis who presented the ed with facial pain - Patient Problems (1) Periodontal abscess Comment: - CT of neck revealed likely cellulitis of right submandibular region and right face, new abscess at the deep aspect of the soft tissues adjacent to the right aspect of the mandible measuring 3.1 x 1.8 x 3.2 cm - Cont Zosyn - ID consulting - OR today ENT for drainage of abscess and possibly removal of tooth - Did have some drainage yesterday evening per nursing so culture sent (2) Hyponatremia Comment: - Resolved (3) Tobacco use Comment: - Encourage cessation (4) SIRS (systemic inflammatory response syndrome) Comment: - On presentation to ED patient mets SIRS criteria with HR > 90, WBC > 12, and present sourse of infection - Ewing cultures, IVF provided, and abx started - SIRS resolved (5) DVT prophylaxis Comment: - Encourage ambulation Status and Disposition: Inpatient for IV abx due to failing outpatient treatment. D/C home when medically stable Attending: Yordy Zuleta
[2018-09-06] MEDS: Montelukast Sodium TAB* 10 MG PO SCH (21:38)
[2018-09-06] MEDS: oxyCODONE/Acetamin 5/325 MG* TAB PO PRN (21:38)
--- NOTE | 2018-09-06 21:52 | OP ---
DATE OF OPERATION: 09/06/18 - ROOM #444 DATE OF : 84 SURGEON: Dr. Richardson. PRE-OP DIAGNOSES: Right dental abscess, floor director space, from an infected tooth #47. POST-OP DIAGNOSIS: OPERATIVE PROCEDURE: Incision and drainage of floor director space abscess intraoral and removal of tooth #47. INDICATIONS: This 38-year-old gentleman with previous history of significant carious tooth had a previous dental infection in his tooth and then resolved with oral antibiotics. Unfortunately, he subsequently developed another one; and, unfortunately, was not able to get good dental care. The abscess then progressed to significant trismus and odynophagia. He was hence seen in the emergency room and admitted for IV antibiotics. The patient progressed to develop significant trismus and what appears to be a floor director space abscess in the medial pterygoid region. DESCRIPTION OF PROCEDURE: The patient was taken to the operating room. The patient was intubated, awake. The tongue and mandible were retracted. Examination of the retromolar trigone area showed a fluctuant mass. Incision was made along the anterior portion of the mandible. Subsequently, sharp and blunt dissection was carried out until a large 5 to 6 cc pocket was identified. Copious irrigation was carried out and then we turned out attention to tooth #47 on the right side molar. Elevation of the mucosa was carried out around it, grasping the tooth and rotating it adequately. Tooth was removed including its roots. The wound was then copiously irrigated again. Bone was rongeured a little bit. This allowed more mucosa to be exposed. This allowed me to pack the area with some Gelfoam, and then subsequently I sutured the mucosa closed with interrupted Vicryl sutures. The patient was then awakened, extubated, and sent to recovery room in stable condition. COUNTS: Instrument and sponge counts were correct. BLOOD LOSS: Minimal. [id number]/[facility] #: [id number] [facility] MEDICAL CENTERJonatan
[2018-09-07] MEDS: diPHENhydraMINE IV* 50 MG/ML 1 ml VIAL (BENADRYL) SLOW PUSH PRN ×2 (00:03→09:04)
[2018-09-07] MEDS: Ketorolac INJ* 30 MG/ML 1 ML VIAL IV PUSH PRN ×2 (00:14→09:05)
[2018-09-07] MEDS: Piperacillin/Tazobac ADVAN(*) 3.375 GM in NS 0.9% 100 ML* 100 ML IVPB SCH ×2 (00:37→09:58)
[2018-09-07] MEDS: oxyCODONE/Acetamin 5/325 MG* TAB PO PRN ×2 (05:21→13:06)
[2018-09-07 06:05] LABS: ABS Basophils 0.1 10^3/ul (0-0.2); ABS Eosinophils 0.2 10^3/ul (0-0.6); ABS Lymphocytes 2.4 10^3/ul (1.0-4.8); ABS Neutrophils 4.7 10^3/ul (1.5-7.7); ABS Nucleated RBC 0 10^3/ul; Eosinophil % 1.8 %; Hematocrit 40 % (42-52); Hemoglobin 13.3 g/dl (14.0-18.0); Lymphocyte % 28.6 %; Mean Corpuscular HGB Conc 33 g/dl (31-36); Mean Corpuscular Hemoglobin 29 pg (27-31); Mean Corpuscular Volume 88 fL (80-94); Mean Platelet Volume 8.5 fL (7.4-10.4); Nucleated Red Blood Cells % 0.1; Platelet Count 261 10^3/ul (150-450); Red Blood Count 4.54 10^6/ul (4.00-5.40); Red Cell Distribution Width 13 % (10.5-15); White Blood Count 8.4 10^3/ul (3.5-10.8)
[2018-09-07 06:26] LABS: BUN/Creatinine Ratio 15.3 (8-20); Calcium 8.5 mg/dL (8.6-10.3); EGFR African American 149.5 (>60); EGFR Non-African American 123.5 (>60); Potassium 3.6 mmol/L (3.5-5.0)
[2018-09-07] MEDS: Chlorhexidine MOUTHWASH 0.12%* 15 ML UDC SWISH SPIT SCH ×2 (09:04→13:06)
--- NOTE | 2018-09-07 09:23 | PN ---
Progress Note - Progress Note Date of Service: 09/07/18 SOAP: Subjective: CC: submandibular abscess HPI: 38 year old man with right submandibular abscess drained yesterday and had right molar extracted. Swelling and trismus improving. No fever, rash, or diarrhea. Objective: Vital Signs Temp 36.7 C 09/07/18 03:38 Pulse 74 09/07/18 03:38 Resp 17 09/07/18 09:04 BP 120/66 09/07/18 03:38 Pulse Ox 97 09/07/18 03:38 Intake & Output 09/06/18 09/07/18 09/07/18 18:59 06:59 18:59 Intake Total 800 490 Output Total 0 Balance 800 490 Intake: IV Fluids 800 50 LR 800 NS (0.9%) 50 IVPB 200 ABX - ZOSYN 200 Oral 0 240 Output: Urine 0 Gen:awake, no distress HEENT: no thrush; R mandible gum erythema Heart:RRR no murmur Lungs:CTA BL Abd:+BS NTND soft Skin: no rash Laboratory Results - last 24 hr 09/07/18 09/07/18 05:53 05:53 WBC 8.4 RBC 4.54 Hgb 13.3 L Hct 40 L MCV 88 MCH 29 MCHC 33 RDW 13 Plt Count 261 MPV 8.5 Neut % (Auto) 56.2 Lymph % (Auto) 28.6 [place] % (Auto) 12.2 Eos % (Auto) 1.8 Baso % (Auto) 1.2 Absolute Neuts (auto) 4.7 Absolute Lymphs (auto) 2.4 Absolute Monos (auto) 1.0 H Absolute Eos (auto) 0.2 Absolute Basos (auto) 0.1 Absolute Nucleated RBC 0 Nucleated RBC % 0.1 Sodium 137 Potassium 3.6 Chloride 104 Carbon Dioxide 27 Anion Gap 6 BUN 11 Creatinine 0.72 Est GFR ( Amer) 149.5 Est GFR (Non-Af Amer) 123.5 BUN/Creatinine Ratio 15.3 Glucose 88 Calcium 8.5 L Microbiology 09/03/18 16:41 Aerobic Blood Culture - Preliminary Blood Venous No Growth Day 3 Anaerobic Blood Culture - Preliminary No Growth Day 3 09/03/18 16:41 Aerobic Blood Culture - Preliminary Blood Venous No Growth Day 3 Anaerobic Blood Culture - Preliminary No Growth Day 3 03/04/19 17:20 Skin and Soft Tissue MRSA/MSSA (PCR - Final Mouth Mrsa Negative S.aureus Negative Gram Stain - Final Wound Culture - Preliminary No Growth Day 1 Assessment: 1. R submandibular abscess s/p I&D and molar extractions 2. hx PCN allergy, tolerating zosyn well Plan: 1. augmentin 875 mg po bid for 10 more days; fu with me 1 week.
[2018-09-07 13:07] VITALS: BP 152/81
--- NOTE | 2018-09-08 22:51 | DS ---
CC: Dr. Richardson; Dr. Donis Turner; Dr. Marcos Ramos; Dr. Zuleta.* DISCHARGE SUMMARY: DATE OF ADMISSION: 09/03/18 DATE OF DISCHARGE: 09/07/18 ATTENDING PHYSICIAN: Dr. Yordy Zuleta* (dictated by Talita Baker NP). PRIMARY CARE PROVIDER: Dr. Marcos Ramos at [facility] COURSE: Please refer to admission H and P dated 09/03/18, but in short this is a 38-year-old male patient with no significant past medical history that was initially admitted on the 08/27/18 and discharged home on 08/28 with a right- sided periodontal cellulitis and abscess. He re-presented to the ED with facial pain after seeing Dr. Ramos in [facility] who added Flagyl to his clindamycin; however, his condition continued to deteriorate. The patient was having trouble eating, had some weight loss over that week and also began to have a trismus. The patient came to the emergency department for evaluation after failing outpatient treatment with antibiotics and was subsequently admitted for worsening abscess and trismus. The patient received normal saline. He was not meeting criteria for sepsis; however, he was quite uncomfortable. He also had a dental block injection at the right lower jaw in order to give him some pain relief. He was subsequently evaluated by ENT. He was maintained on Zosyn and chlorhexidine mouthwash. Dr. Richardson took the patient to the OR on 09/06/18 for an I and D tooth extraction and washout. He had an incision and drainage performed of the telephone installer space abscess and intraoral removal of tooth #47. The patient tolerated his procedure well. He had an uneventful postprocedure course, continued on oral antibiotics. He was also seen by Dr. Donis Turner of Infectious Disease who recommended Augmentin at discharge. Please also note, the patient does have a documented penicillin allergy; however, he tolerated Zosyn well. He was given Benadryl while he was on the Zosyn. It was also recommended that he take Benadryl while he was completing his 10-day course of Augmentin. REVIEW OF SYSTEMS: On the day of discharge, the patient denies any fevers, fatigue, or chills. He does have some jaw and mouth pain. It is decently well controlled with Percocet at this time. He denies any shortness of breath. No chest pain. No nausea, no vomiting, no abdominal pains, no urinary complaints, and no further constitutional complaints. PHYSICAL EXAMINATION: His physical exam reveals a well-appearing gentleman in no acute distress. His vital signs are blood pressure 152/81, heart rate 78, respiratory rate 14, O2 saturation 97% on room air with a temperature of 98.2. HEENT: Patient is atraumatic, normocephalic. PERRLA with nonicteric sclerae. Oral mucosa is moist. He does have a suture in the pocket where the molar was removed. There was no active drainage noted. The patient does have some difficulty opening his mouth, but is tolerating p.o. His neck is supple, nontender. No JVD noted. No carotid bruit auscultated. No thyromegaly appreciated. No cervical adenopathy noted. No clavicular adenopathy noted. Chest is benign. Heart sounds S1, S2 present. Rate and rhythm are regular. No murmurs, gallops or rubs noted. Lungs are clear bilaterally to auscultation with no wheezing, rhonchi or rales. Abdomen is soft, nontender, nondistended. Positive bowel sounds in all 4 quadrants. was deferred. Musculoskeletal: There is no clubbing, no cyanosis, and no edema. He has +2 distal pulses palpable. Full range of motion and steady gait. Neurologic: Grossly intact with no focality. Psychiatric: Cooperative and appropriate. LABORATORY DATA/DIAGNOSTIC DATA: Dated 09/07/18; WBCs 8.4, down from 14.3, RBCs 4.54, hemoglobin 13.3, hematocrit 40, platelets 261. Sodium 137, potassium 3.6, chloride 104, CO2 27, BUN 11, creatinine 0.72. GFR 123.5. Glucose 88, calcium 8.5. Bilirubin 0.50, AST 14, ALT 19, alk phos 83. CRP 66.05 down from 147.85. Total protein 8.4, albumin 4.2, globulin 4.2. Serology ; HIV antibodies 1 and 2 were negative. Coags; INR was 1.11. Imagin. CT of the neck and jaw dated 09/03/18 showed a worsening likely cellulitis in the right submandibular region and the right face where there is new soft tissue abscess with the deep aspect of the soft tissues adjacent to the right aspect of the mandible with this abscess measuring 3.1 x 1.8 x 3.2 cm. 2. There is increased right-sided level I and level II cervical lymphadenopathy. 3. There was a stable dental cavity as well as periapical lucency consistent with periodontal disease, periodontal abscess involving the right mandibular second molar tooth. There is also additional stable dental cavity involving the left maxillary molar and left mandibular molar. DISCHARGE DIAGNOSES: 1. Periodontal abscess and cellulitis status post I and D and extraction. 2. Mild hyponatremia. 3. Mild hypovolemia. 4. History of tobacco abuse. DISCHARGE MEDICATIONS: Include: 1. Tramadol 50 mg p.o. q.8 hours as needed. 2. Ibuprofen 600 mg q.8 hours as needed. 3. Percocet 1 tab q.6 hours as needed, maximum 3 days. 4. Benadryl 25 mg p.o. daily while on Augmentin. 5. Singulair 10 mg p.o. at bedtime also while on Augmentin. 6. Chlorhexidine mouth wash 50 mL swish and spit 3 times a day. 7. Augmentin 875 mg 1 tablet p.o. b.i.d. for 10 days. 8. Tylenol as needed. DISPOSITION: The patient was discharged to home in stable condition. All questions were answered. The patient stated understanding of this discharge instructions, diagnosis, medications and followups. FOLLOWUP: The patient was instructed to follow up with Dr. Marcos Ramos at the [facility]. He was also instructed to follow up with Dentistry. The patient has stated he will inquire with his insurance whether he can obtain new dental care. In the meantime, he should also follow up with Dr. Donis Turner if he does not have continued resolution of his symptoms. Again, the patient was discharged in stable condition. TIME SPENT: Approximately, 35 minutes interfacing with the patient and planning discharge plan of care. TALITA BAKER NP [id number]/[facility] #: [id number] FRANCIS
== END 2018-09-07 14:25 | disposition home or self-care (01) | DRG 98 ==
LOC: ED 15:52 → MEDTELE 22:00
PROVIDERS: ADMIT Internal Medicine; ATTEND Internal Medicine
PROC: 0WJ Anatomical Regions, General, Inspection (ICD-10-PCS; 2018-09-03)
PROC: 3E0T3BZ Introduction of Anesthetic Agent into Peripheral Nerves and Plexi, Percutaneous Approach (ICD-10-PCS; 2018-09-03)
PROC: 0CDXXZ0 Extraction of Lower Tooth, Single, External Approach (ICD-10-PCS; 2018-09-06)
PROC: 0J910ZZ Drainage of Face Subcutaneous Tissue and Fascia, Open Approach (ICD-10-PCS; principal; 2018-09-06 16:00)
DX: K12.2 Cellulitis and abscess of mouth (principal); E87.1 Hypo-osmolality and hyponatremia; E44.0 Moderate protein-calorie malnutrition; K05.219 Aggressive periodontitis, localized, unspecified severity; Z88.0 Allergy status to penicillin; J45.909 Unspecified asthma, uncomplicated; F17.210 Nicotine dependence, cigarettes, uncomplicated; K02.9 Dental caries, unspecified; R59.1 Generalized enlarged lymph nodes; R13.10 Dysphagia, unspecified; E86.1 Hypovolemia; Z88.8 Allergy status to other drugs, medicaments and biological substances; Z72.89 Other problems related to lifestyle; Z82.49 Family history of ischemic heart disease and other diseases of the circulatory system; Z68.28 Body mass index [BMI] 28.0-28.9, adult
CPT/HCPCS: 36415; 70491; 80048; 80053; 83605; 85025; 85610; 86140; 86703; 87040; 87070; 87077; 87205; 87640; 87641; 88300; 99283; A9270-GY; J0360; J1200; J1885; J2250; J2270; J2405; J2543; J2704; J2765; J2930; J3010; Q9967

== ENCOUNTER 2018-12-28 19:17 | Emergency (ER) | payer OTHER ==
[2018-12-28 19:32] VITALS: BP 134/83
[2018-12-28] MEDS ORDERED: predniSONE TAB* 20 MG PO ONE (19:39)
[2018-12-28] MEDS ORDERED: Albuterol HFA INHALER* 8 gm MDI INH ONE (19:40)
--- NOTE | 2018-12-28 19:43 | UC ---
Respiratory Complaint HPI - HPI Summary HPI Summary: 38 yo male with cough x 1 week cough blood tingued at times no f/c some sinus pressure and pain no n/v/d smoker - History of Current Complaint Chief Complaint: UCRespiratory Stated Complaint: COUGH Time Seen by Provider: 12/28/18 19:28 Hx Obtained From: Patient Onset/Duration: Gradual Onset, Lasting Days Timing: Constant Severity Initially: Mild Severity Currently: Moderate Pain Intensity: 0 Pain Scale Used: 0-10 Numeric Character: Cough: Nonproductive Aggravating Factors: Exertion, Deep Breaths Alleviating Factors: Nothing Associated Signs And Symptoms: Positive: Wheezing, Nasal Congestion, Sinus Discomfort - Allergies/Home Medications Allergies/Adverse Reactions: Allergies Allergy/AdvReac Type Severity Reaction Status Date / Time carisoprodol [From [facility]] Allergy Severe Headache Verified 09/03/18 16:07 Home Medications: Home Medications Ibuprofen 800 mg PO Q8HR PRN 12/28/18 [History Confirmed 12/28/18] Loratadine [Claritin] 10 mg PO DAILY 12/28/18 [History Confirmed 12/28/18] PMH/Surg Hx/FS Hx/Imm Hx Previously Healthy: Yes Respiratory History: Asthma, Bronchitis - Surgical History Surgical History: Yes Surgery Procedure, Year, and Place: Right knee acl repair. R mandible surgery and tooth 2019 - Family History Known Family History: Negative: Cardiac Disease, Hypertension, Diabetes - Social History Alcohol Use: Occasionally Substance Use Type: None Smoking Status (MU): Heavy Every Day Tobacco Smoker Type: Cigarettes Amount Used/How Often: 1 ppd - Immunization History Most Recent Influenza Vaccination: 2017 Most Recent Pneumonia Vaccination: never Review of Systems All Other Systems Reviewed And Are Negative: Yes Constitutional: Positive: Negative Skin: Positive: Negative Eyes: Positive: Negative ENT: Positive: Sinus Congestion Respiratory: Positive: Cough Cardiovascular: Positive: Negative Gastrointestinal: Positive: Negative Genitourinary: Positive: Negative Motor: Positive: Negative Musculoskeletal: Positive: Negative Neurological: Positive: Negative Psychological: Positive: Negative Physical Exam Triage Information Reviewed: Yes Appearance: Well-Appearing, No Pain Distress, Well-Nourished Vital Signs: Initial Vital Signs Temp 97.4 F 12/28/18 19:31 Pulse 84 12/28/18 19:31 Resp 18 12/28/18 19:31 BP 134/83 12/28/18 19:31 Pulse Ox 99 12/28/18 19:31 Vital Signs Reviewed: Yes Eyes: Positive: Conjunctiva Clear ENT: Positive: Hearing grossly normal, Uvula midline. Negative: Nasal congestion, Nasal drainage, Tonsillar swelling, Tonsillar exudate, Trismus, Muffled voice, Hoarse voice Dental Exam: Normal Neck: Positive: Supple, Nontender, No Lymphadenopathy Respiratory: Positive: No respiratory distress, No accessory muscle use, Respiratory distress, Wheezing - with forced expiraton Cardiovascular: Positive: RRR, No Murmur Abdomen Description: Positive: Nontender Musculoskeletal: Positive: ROM Intact, No Edema Neurological: Positive: Alert Psychological Exam: Normal Skin Exam: Normal Respiratory Course/Dx - Course Course Of Treatment: I suggested a CXR which he declines He states he will reconsider if not improving - Differential Dx/Diagnosis Provider Diagnosis: Acute bronchitis with bronchospasm, Smoker, Elevated BP without diagnosis of hypertension Discharge - Sign-Out/Discharge Documenting (check all that apply): Patient Departure All imaging exams completed and their final reports reviewed: No Studies - Discharge Plan Condition: Stable Disposition: HOME Prescriptions: Amoxicillin PO (*) [Amoxicillin 875 MG (*)] 875 mg PO BID #14 tab predniSONE [Deltasone 20 MG TAB] 40 mg PO DAILY #10 tab Patient Education Materials: Acute Bronchitis (ED), How to Use a Metered-Dose Inhaler and a Spacer (ED) Referrals: Marcos Ramos MD [Primary Care Provider] - 2 Weeks (BP recheck in 2-12 weeks) Additional Instructions: use inhaler as directed recheck if not better in 2 weeks - Billing Disposition and Condition Condition: STABLE Disposition: Home
== END 2018-12-28 19:54 | disposition home or self-care (01) ==
LOC: UCEAST 19:17
DX: J20.9 Acute bronchitis, unspecified (principal); F17.210 Nicotine dependence, cigarettes, uncomplicated; R03.0 Elevated blood-pressure reading, without diagnosis of hypertension
CPT/HCPCS: 99213; A9270-GY; G0463; J7512